=== PATIENT | male | born 1945 | race Caucasian/White ===

== ENCOUNTER → 2021-12-10 12:41 | Outpatient (BNVA) | payer MEDICARE, OTHER, SELFPAY | PROVIDERS: PCP Family Medicine; Visit Provider Nurse Practitioner Family | DX: R31.0 Gross hematuria (principal); R33.9 Retention of urine, unspecified | CPT/HCPCS: 51741; 51798; 81003; 87086; 88112; 99203 ==

== ENCOUNTER 2021-12-26 06:39 | Outpatient (CLI) | payer MEDICARE, OTHER, SELFPAY ==
--- NOTE | 2021-12-26 08:30 | CT_ITS ---
WS: [id number] CT ABDOMEN AND PELVIS WITH AND WITHOUT CONTRAST HISTORY: GROSS HEMATURIA TECHNIQUE: Unenhanced 5 mm axial imaging first performed through the abdomen. Post contrast imaging t hrough the abdomen and pelvis. Oral contrast has not been provided. Sagittal and coronal reformats a re submitted. All CT scans at [facility] use at least one of these dose optimization techniqu es: automated exposure control; mA and/or kV adjustment per patient size (includes targeted exams whe re dose is matched to clinical indication); or iterative reconstruction. CONTRAST: Visipaque 320; 95 mL IV. DLP: 2444.11 mGy.cm COMPARISON: None available. Moderate motion artifact at the lung bases. Chronic emphysema. Heart is normal size. Small hiatal her leticia. Liver is normal. Normal portal vein. Normal size spleen and adrenal glands. Normal gallbladder. Normal pancreas. No pancreatic duct dilatation. Moderate atherosclerotic plaque within the aorta. RIGHT kidney: Normal size kidney. No stones identified. No obstruction. Cortical 8mm hypodensity supe rior pole too small to characterize. No solid mass or obstruction. No uroepithelial lesions. LEFT kidney: Normal size with no calcification or obstruction. There are a few tiny cortical hypodens ities which are too small to characterize. No uroepithelial lesion. Abnormal urinary bladder. Urinary bladder is moderately well distended. There is mild diffuse wall th ickening and mucosal irregularity. Solid mass with punctate calcification and enhancement along the R IGHT lateral urinary bladder measures 2.1 x 1.5 cm. There are additional tiny nodules scattered throu ghout the urinary bladder wall and several small bladder diverticulum on the RIGHT. The largest diver ticulum measures 2.5 x 2.6 cm. Prostate gland is enlarged and very heterogeneous with calcification. Prostate measures 7.8 x 5.3 cm x 6.3 cm. There is increased soft tissue inseparable from the prostate gland extending to the LEFT within the urinary bladder. Due to the extensive nature, this could be a dditional neoplasm involving the bladder wall or extension from the prostate gland. No GI tract obstruction. There is mild mucosal thickening involving the small bowel and the LEFT uppe r abdomen. No obstruction. No colon obstruction. Quality of this examination is compromised by the br eathing motion artifact. No adenopathy. No ascites. There are a few sclerotic foci within the bones which are very indeterminate and may be small bone is lands. CT/CT abdomen pelvis wo/w [id number] IMPRESSION: 1. Abnormal urinary bladder. Mass along the RIGHT lateral urinary bladder wall measures 2.1 x 1.5 cm. There are additional areas of thickening and nodularity around urinary bladder wall. 2. Enlarged prostate. Contiguous from the prostate gland and extending into th e LEFT base of the bladder is additional soft tissue mass which may be bladder neoplasm versus prostate extension. 3. No renal calcification, obstruction or mass. 4. Atherosclerosis aorta. 5. Mild fluid distention and mucosal thickening of the small bowel loops in th e LEFT upper abdomen. Early due to mild gastroenteritis.
[2021-12-26] MEDS: iodixanol 320 mg/mL 100mL Btl IV (08:42)
[2021-12-26 10:23] LABS: Blood Urea Nitrogen 24 mg/dL (8-23)
== END 2021-12-26 06:40 | disposition home or self-care (01) ==
PROVIDERS: PCP Family Medicine; Visit Provider Nurse Practitioner Family
DX: R31.0 Gross hematuria (principal); N32.89 Other specified disorders of bladder; N40.0 Benign prostatic hyperplasia without lower urinary tract symptoms; I70.0 Atherosclerosis of aorta; R33.9 Retention of urine, unspecified; C67.9 Malignant neoplasm of bladder, unspecified; J44.9 Chronic obstructive pulmonary disease, unspecified
CPT/HCPCS: 51741; 51798; 74178; 81003; 82565; 84520; 99215

== ENCOUNTER 2021-12-31 15:17 | Observation (INO) | payer MEDICARE, OTHER, SELFPAY ==
[2021-12-30 16:13] VITALS: BMI 19.8
[2021-12-31] VITALS (20 sets, daily range): BP systolic 103–153; BP diastolic 61–83; PULSE 74–101; RESP 16–20; TEMP 36.8–37; O2SAT 90–98
--- NOTE | 2021-12-31 07:00 | XR_ITS ---
WS: [id number] Chest 2 views, 12/31/2021 Clinical Data: Bladder cancer, COPD Comparison: None. Findings: No nodules, masses or effusions are seen. The heart is normal. The pulmonary vascularity is not increased. No pneumonia or pneumothorax is seen. The aortic arch and descending thoracic aorta s how calcification. The diaphragms are flattened. XR/XR chest 2V* [id number] Impression: Atherosclerosis and hyperinflation.
--- NOTE | 2021-12-31 07:15 | P.HPUD_ITS ---
Surgery/Procedure H&P Update DATE OF PROCEDURE: December 31, 2021 DATE H&P PERFORMED: 12/26/21 H&P UPDATE INFORMATION: I have reviewed H&P completed within last 30 days, I have examined patient prior to procedure, No changes to prior documentation and H&P is in [facility] EMR on date indicated CHANGES TO PREVIOUS DOCUMENTATION: Chest x-ray was normal. EKG showed no acute changes. Lab data looked good. PREOP DIAGNOSIS: bladder cancer PLANNED PROCEDURE: Operation Date: 12/31/21 08:05 Proposed Procedures p CYSTOSCOPY TRANSURETHRAL RESECTION BLADDER TUMOR LARGE 22300,10478,C67.9(Not Applicable) - Cleveland Sanabria MD s Transurethral Resection Bladder Tumor(Not Applicable) - Cleveland Sanabria MD
--- NOTE | 2021-12-31 07:17 | ECG_ITS ---
[facility] Test Date: 2021-12-31 Pat Name: Joe Lawson Department: Room: Gender: Male [employer] Operator: : [id number] Requested By: Cleveland Sanabria Order Number: [id number] Keyana MD: Enoc Peña M.D. Measurements Intervals [place] Rate: 95 P: 85 NJ: 160 QRS: -75 QRSD: 80 T: 78 QT: 344 QTc: 434 Interpretive Statements SINUS RHYTHM POSSIBLE RIGHT ATRIAL ENLARGEMENT [0.25mV P-WAVE] POSSIBLE LEFT ATRIAL ENLARGEMENT [-0.1mV P-WAVE IN V1/V2] LEFT AXIS DEVIATION [QRS AXIS < -30] No previous ECG available for comparison Electronically Signed On 12-31-2021 17:20:31 CDT by Enoc Peña M.D. [email or web address]
[2021-12-31 08:00] LABS: Basophils % 0.2 %; Eosinophils # 0.1 10^3/uL (0.0-0.8); Eosinophils % 0.6 %; Hematocrit 43.2 % (42.0-52.0); Hemoglobin 14.3 g/dL (11.7-16.6); Lymphocytes # 1.4 10^3/uL (0.8-4.8); Lymphocytes % 15.5 %; Mean Corpuscular HGB Conc 33.1 g/dL (30.0-36.0); Mean Corpuscular Hemoglobin 31.6 pg (28.0-34.0); Mean Corpuscular Volume 95.6 fl (80-94); Mean Platelet Volume 10.7 fL (7.4-10.4); Monocytes % 11.8 %; Neutrophils # 6.27 10^3/uL (1.8-7.7); Neutrophils % 71.6 %; Nucleated Red Blood Cells % 0 %; Platelet Count 196 10^3/cmm (130-400); Red Blood Count 4.52 10^6/uL (4.1-5.3); Red Cell Distribution Width 12.5 % (12.1-15.1); White Blood Count 8.8 10^3/uL (4.0-10.0)
[2021-12-31] MEDS: sodium chloride 0.9% 1,000 ML 30 ML IV (08:10)
[2021-12-31] MEDS: ipratropium-albuterol 3 mL Neb INHALATION (08:21)
[2021-12-31] MEDS: meperidine 50 mg/mL INJ 12.5 MG IVP ×2 (08:27→11:55)
[2021-12-31 08:33] LABS: Alanine Aminotransferase 21 U/L (0-41); Albumin Level 3.9 g/dL (3.5-5.2); Alkaline Phosphatase 147 U/L (40-130); Anion Gap 15.3 (5-19); Aspartate Amino Transferase 18 U/L (0-40); Blood Urea Nitrogen 19 mg/dL (8-23); Calcium 9.3 mg/dL (8.5-10.5); Carbon Dioxide 27 mmol/L (22-29); Chloride 100 mmol/L (98-107); Globulin 3.1 g/dL (1.3-4.6); Glucose 117 mg/dL (65-115); Osmolality Calculated 289 mOsm/kg (285-295); Potassium 4.3 mmol/L (3.5-5.1); Sodium 138 mmol/L (136-145); Total Bilirubin 0.4 mg/dL (0.15-1.2)
--- NOTE | 2021-12-31 08:38 | ANES.PREANE2 ---
Pre-Anesthetic Assessment Height/Weight: Height 1.73 m Weight 58.967 kg O2 Del Method 12/31/21 07:40 Preop Diagnosis: bladder cancer Operation Date: 12/31/21 08:05 Proposed Procedures p CYSTOSCOPY TRANSURETHRAL RESECTION BLADDER TUMOR LARGE 97579,34280,C67.9(Not Applicable) - Cleveland Sanabria MD s Transurethral Resection Bladder Tumor(Not Applicable) - Cleveland Sanabria MD Familial anesthetic complications: None Was Beta Douglas taken within 24 hours: N/A Was Clonidine taken within 24 hours: N/A Last intake: Intake Last Liquid Date 12/30/21 Last Liquid Time 17:00 Last Solid Date 12/30/21 Last Solid Time 17:00 Social Tobacco and No alcohol Exam alert, oriented x 3 and regular rate & rhythm Elevated heart rate (95), rhonchi/wheezing Airway Submandibular: within normal limits Cervical ROM: within normal limits Mallampati: Class II Dentition: false Pulmonary Chronic Obstructive Pulmonary Disease CV/HEM Hypertension blood in urine Metabolic Thyroid Disease Anesthetic Plan ASA status: 3 Anesthesia: General Medications/Allergies Home Medications Medication Instructions Recorded Confirmed Last Taken Type albuterol sulfate 0.63 mg/3 mL 0.63 mg inhalation QID PRN 12/10/21 12/30/21 Unknown History solution for nebulization Shortness Of Breath budesonide 0.5 mg/2 mL suspension 0.25 mg inhalation BID 12/10/21 12/30/21 12/30/21 History for nebulization formoterol fumarate 20 mcg/2 mL 2 ml inhalation BID PRN Shortness 12/10/21 12/30/21 Unknown History solution for nebulization Of Breath (Perforomist) levothyroxine 75 mcg capsule 75 mcg PO DAILY 12/10/21 12/31/21 12/31/21 History lisinopril 20 mg tablet 20 mg PO DAILY 12/10/21 12/30/21 12/30/21 History oxygen continuous inhalation 12/10/21 12/26/21 12/31/21 History Allergies Allergy/AdvReac Type Severity Reaction Status Date / Time No Known Allergies Allergy Unverified 12/26/21 10:20 Current Medications Generic Name Dose Route Start Last Admin Trade Name Freq PRN Reason Stop Dose Admin Sodium Chloride 1,000 mls @ 30 mls/hr 12/31/21 07:15 12/31/21 08:10 Sodium Chloride 0.9% IV 01/01/22 07:14 30 mls/hr .Q24H KIMBERLY Administration Meperidine HCl 12.5 mg 12/31/21 08:15 12/31/21 08:27 Meperidine 50 Mg/Ml Inj IVP 12.5 mg ONCE PRN Administration SEVERE PAIN PFSH Anesthesia Medical History (Updated 12/26/21 @ 16:28 by Cleveland Sanabria MD) Bladder cancer COPD (chronic obstructive pulmonary disease) Family History Mother , age 93 CAD (coronary artery disease) Father , at age 78 Cancer lung Brother , at 83 Cancer colon Sister , Age 79 No problems noted. Social History Smoking and tobacco status: current every day smoker Alcohol intake: never Lives independently: Yes Household members: spouse Marital status: Current occupational status: retired History of recent travel: No Data Anesthesia : 12/31/21 07:25 12/31/21 07:25 Short CBC 12/31/21 Range/Units 07:25 WBC 8.8 (4.0-10.0) 10^3/uL Hgb 14.3 (11.7-16.6) g/dL Hct 43.2 (42.0-52.0) % MCV 95.6 H (80-94) fl Plt Count 196 (130-400) 10^3/cmm Neut % (Auto) 71.6 % Neut # (Auto) 6.27 (1.8-7.7) 10^3/uL BMP 12/31/21 07:25 Sodium 138 Potassium 4.3 Chloride 100 Carbon Dioxide 27 BUN 19 Calcium 9.3 Liver Function 12/31/21 Range/Units 07:25 Total Bilirubin 0.4 (0.15-1.2) mg/dL AST 18 (0-40) U/L ALT 21 (0-41) U/L Albumin 3.9 (3.5-5.2) g/dL Cardiac Studies: No Data to Display
--- NOTE | 2021-12-31 09:10 | PM.OP ---
Operative Report Date of procedure: December 31, 2021 Pre-op diagnosis: Newly diagnosed TCCA of the bladder, large Post-op diagnosis: Newly diagnosed TCCA of the bladder, large Procedure done: 1. Cystoscopy, transurethral section of bladder tumor large Specimens removed/disposition: Bladder tumor specimens Pathology: Bladder tumor Surgeon: Elly Anesthesia: General Estimated blood loss: Less than 50 cc Urine output: Not measured Complications: None Findings: Multifocal invasive appearing bladder cancer involving right lateral wall near the dome, posterior bladder wall cephalad to the trigone and distal to the trigone, left posterolateral bladder wall. Brief History: Mr. Lawson is a very pleasant 76-year-old white male recently evaluated for gross hematuria times several months. Noticed clots at times. Longstanding history of tobacco abuse. Work-up included a cytology showing atypical cells, CT scan demonstrating large soft tissue density consistent with TCCA of the bladder but no evidence of metastatic disease. Cystoscopy confirmed that finding to be TCCA. He is admitted now for TURBT. Procedure: After routine preoperative evaluation examination and obtaining of informed consent he was taken to the operating suite on 12/31/2021 where general anesthesia was administered without difficulty after appropriate timeout was performed, SCDs confirmed to be functioning, preoperative antibiotics administered, beta-constance protocol confirmed. Prepped and draped in usual sterile fashion in dorsolithotomy position paying careful attention to avoiding pressure points. 21 [place] cystoscope with 30 degree lens was introduced into the urethra meatus and advanced into the bladder without difficulty. The bladder was distended with a lot of stagnant appearing urine. Bladder was rinsed multiple times to clear the debris. The bladder was systematically examined with 30 and 70 degree lenses. Findings as described above. The urethra was then calibrated with [place] sounds and easily accommodated 30 [place]. 2% lidocaine jelly was instilled into the urethra and then a 25 [place] continuous-flow resectoscope sheath with visual obturator in place was advanced into the bladder without difficulty. The gyrus bipolar system was utilized for resection with the super loop and fulguration with the button probe. Initial resection was performed on the right lateral wall or toward the dome papillary tumor with dystrophic calcification. It was completely resected down into the bladder wall. Muscle was visualized at the base. Attention was then directed to the left posterolateral wall where the bulk of the tumor was located extending onto the prostate itself. The left ureteral orifice was not easily identified but the right ureteral orifice was. Resection was begun more laterally taking the tumor down to the bladder wall base. Resection was then directed in the medial direction from previous resection. The left ureteral orifice was never completely identified but there was an area of most suspicion that was involved in resection to remove the tumor and appeared to the after resection consistent with a superficially resected ureteral orifice. Methylene blue was administered IV but could not see any E flux from either orifice. It appeared to me that the left posterior bladder wall tumor was involved in the muscle. There was a lot of superficial tumor as well well away from the orifice area that was just fulgurated with a button probe if there is no muscle involvement he will need a repeat staging resection. Resection did extend onto the bladder neck on the left side posteriorly. All resected sites were carefully inspected and hemostasis was confirmed. The button probe was used to fulgurate the base of both resection sites and care was made to avoid anything close to the area of the presumed left ureteral orifice. The 2 areas of resection were sent separately for pathologic evaluation. On final inspection hemostasis was meticulous. No residual specimens were in the bladder. Still cannot see any obvious blue efflux from either area of the orifices The bladder was then drained with a 22 [place] three-way Guy catheter with 30 cc placed in the balloon. Efflux was clear. Light CBI was initiated. Catheter was confirmed to be functioning well with irrigation. Tolerated the procedure well without complications and was awakened in the operating room and returned to the recovery room in stable condition. PLANS: 1. Admit to observation status. Anticipate discharging with Guy catheter 2. If muscle involvement will send for evaluation of either extirpative or potentially bladder sparing treatment. 3. If no muscle involvement will require restaging resection. May require reimaging of the upper tracts to assess for adequate ureteral drainage particularly on the left.
[2021-12-31] MEDS: levofloxacin-dextrose 5 % 500 MG/100 ML PREMIX 100 MG IV (09:13)
[2021-12-31] MEDS: lidocaine 2% Urojet 20 mL TOPICAL (11:06)
--- NOTE | 2021-12-31 12:00 | ANE.PACU2 ---
Inpatient post-anesthesia follow up: Airway intact: Yes Vital signs: Temperature 98.4 F Pulse Rate 100 Respiratory Rate 18 Blood Pressure 115/66 Pulse Oximetry 97 Oxygen Delivery Me thod Room Air Oxygen Flow Rate 6 Fraction of Inspir ed Oxygen Hydration adequate: Yes Nausea and vomiting: No Pain level: 2 Mental status: Baseline
[2021-12-31] MEDS: fentaNYL 50 mcg/mL INJ 2mL IVP (14:41)
--- NOTE | 2021-12-31 15:36 | SUR.EXTENDED ---
1520 report called to Philomena for transport to room 253
[2021-12-31] MEDS: lisinopril 20 mg Tablet PO (17:07)
[2021-12-31] MEDS: HYDROcodone-acetaminophen 5-325 mg Tablet 1 TAB PO (17:34)
--- NOTE | 2021-12-31 18:21 | PC.NURSE ---
Patient had 1550mL of urine output on my shift, clear in color, no clots noted, no manual irrigation needed, pain controlled with oral pain meds, CBI running at a slow drip
[2021-12-31] MEDS: morphine 4 mg/mL SDV 1 mL IVP (19:14)
[2021-12-31] MEDS: budesonide 0.5 mg/2 mL Neb 0.25 MG INHALATION (20:10)
[2022-01-01] VITALS: BP 118/64; PULSE 74; RESP 16; TEMP 36.7; O2SAT 97
[2022-01-01] MEDS: HYDROcodone-acetaminophen 5-325 mg Tablet 1 TAB PO (03:13)
[2022-01-01 04:00] VITALS: BP 105/56; PULSE 79; RESP 16; TEMP 37; O2SAT 94
[2022-01-01 08:00] VITALS: BP 110/60; PULSE 73; PULSE 82; RESP 15; RESP 18; TEMP 37.1; O2SAT 88; O2SAT 93
[2022-01-01] MEDS: budesonide 0.5 mg/2 mL Neb 0.25 MG INHALATION (09:15)
--- NOTE | 2022-01-01 10:21 | PC.CHAP ---
Pastoral Care Encounter/Spiritual Assessment Type of Contact [x] Declined molding utility worker visit [] Patient/Family/Request visit [] Outpatient visit [] Follow-up visit [] Physician referral [] Code/Alert [] Routine visit [] Staff referral [] Actively dying [] Patient sleeping [] Family support [] [] Out of room [] Palliative care [] [] Receiving care in room [] Pre-surgical visit [] Trauma [] Long length of stay [] ICU visit [] Other: Relational/Emotional Strength [] Patient feels connected with others/family/visitors/staff [] Distress [] Loneliness/isolation [] Abandonment Spirituality of Patient [] Person of Diann [] Attends Nondenominational of their Diann [] Believes in Prayer [] Reads Bible or Methodist materials [] There are Spiritual issues to be addressed Draw Furnace Tender Interventions [] Prayer [] Active listening [] Non-anxious presence [] Spiritual/emotional support [] Crisis/trauma care [] Spiritual counseling [] Bereavement support [] Provided bereavement packet [] Provided Bible/devotional materials [] Provided toy/stuffed animal, coloring book to patient or family member [] Provided Communion [] Anointing/[place] [] Salvation [] Completed spiritual assessment [] Other: Impact on Illness or Injury [] Angry [] Fearful [] Anxious [] Often cries [] Exhaustion [] Unable to work [] Unable to attend rastafari [] Unable to walk/stand [] Unable to read [] Unable to drive [] Unable to eat/drink [] Unable to sleep [] Unable to be with family [] Patient intubated [] Other: Summary Declined molding utility worker visit Time spent with patient 5 mins
[2022-01-01] MEDS: levothyroxine 75 mcg Tablet PO (10:33)
[2022-01-01] MEDS: lisinopril 20 mg Tablet PO (10:33)
[2022-01-01 12:00] VITALS: BP 118/69; PULSE 77; RESP 14; TEMP 36.7; O2SAT 96
--- NOTE | 2022-01-01 12:42 | P.DS_ITS ---
Discharge Providers Date of Admission: 12/31/21 15:17 Date of Discharge: January 01, 2022 Attending Provider at Admission: Cleveland Sanabria MD Attending Provider at Discharge: Cleveland Sanabria MD Primary Care Provider: Negar Sylvester DO Reason for Visit Reason for Visit: Newly diagnosed bladder cancer Brief History: Recently diagnosed with large volume bladder cancer during work-up for gross hematuria. Admitted for TURBT. Preoperative CT scan showed no clear evidence of metastatic disease. Preoperative chest x-ray as well was negative. Hospital Course Hospital Course He was admitted on the day of the procedure which went well. Clinically it appeared that the tumor involve the muscle. Guy catheter was left in and CBI was tapered off over the following day. He was discharged on postop day #1 in stable condition with catheter in place with plans for voiding trial 1 week postop. We will review pathology report at the same time. In addition he was found to have a very large postvoid residual at time of surgery. 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 Physical Exam Narrative: Alert oriented no acute distress No labored respiration Abdomen is soft without tenderness. Catheter draining clear urine. No hematuria No change genitourinary exam. Chronic tremor as previously noted Urinary Catheter Management: 3-way Urethral CBI: Cath Placed During This Visit: yes Reason for Continuing Indwelling Catheter: Perioperative Use in Selected Surgeries Urinary Catheter Date of Insertion: 12/31/21 Urinary Catheter Time of Insertion: 11:12 Discharge Data Studies Completed and Pending Completed Studies During Hospitalization Category Date Time Status XR chest 2V* [id number] Routine Exams 12/31/21 07:00 Completed Pending at discharge Category Date Time Status Pathology: Surgical [PTH] Routine Pth 12/31/21 11:20 Received Radiology Impressions Chest X-Ray 12/31/21 07:00 Impression: Atherosclerosis and hyperinflation. Laboratory Results WBC 8.8 10^3/uL (4.0-10.0) 12/31/21 07:25 RBC 4.52 10^6/uL (4.1-5.3) 12/31/21 07:25 Hgb 14.3 g/dL (11.7-16.6) 12/31/21 07:25 Hct 43.2 % (42.0-52.0) 12/31/21 07:25 MCV 95.6 fl (80-94) H 12/31/21 07:25 MCH 31.6 pg (28.0-34.0) 12/31/21 07:25 MCHC 33.1 g/dL (30.0-36.0) 12/31/21 07:25 RDW 12.5 % (12.1-15.1) 12/31/21 07:25 Plt Count 196 10^3/cmm (130-400) 12/31/21 07:25 MPV 10.7 fL (7.4-10.4) H 12/31/21 07:25 Neut % (Auto) 71.6 % 12/31/21 07:25 Lymph % (Auto) 15.5 % 12/31/21 07:25 Lar[place] % (Auto) 11.8 % 12/31/21 07:25 Eos % (Auto) 0.6 % 12/31/21 07:25 Baso % (Auto) 0.2 % 12/31/21 07:25 Neut # (Auto) 6.27 10^3/uL (1.8-7.7) 12/31/21 07:25 Lymph # (Auto) 1.4 10^3/uL (0.8-4.8) 12/31/21 07:25 Larue # (Auto) 1.0 10^3/uL (0.2-0.9) H 12/31/21 07:25 Eos # (Auto) 0.1 10^3/uL (0.0-0.8) 12/31/21 07:25 Baso # (Auto) 0.0 10^3/uL (0.0-0.1) 12/31/21 07:25 Nucleated RBC % (auto) 0 % 12/31/21 07:25 Nucleated RBCs # 0.0 /100WBC 12/31/21 07:25 Sodium 138 mmol/L (136-145) 12/31/21 07:25 Potassium 4.3 mmol/L (3.5-5.1) 12/31/21 07:25 Chloride 100 mmol/L (98-107) 12/31/21 07:25 Carbon Dioxide 27 mmol/L (22-29) 12/31/21 07:25 Anion Gap 15.3 (5-19) 12/31/21 07:25 BUN 19 mg/dL (8-23) 12/31/21 07:25 Creatinine 1.3 mg/dL (0.7-1.2) H 12/31/21 07:25 GFR Calculation Not Reportable 12/31/21 07:25 Glucose 117 mg/dL (65-115) H 12/31/21 07:25 Calculated Osmolality 289 mOsm/kg (285-295) 12/31/21 07:25 Calcium 9.3 mg/dL (8.5-10.5) 12/31/21 07:25 Total Bilirubin 0.4 mg/dL (0.15-1.2) 12/31/21 07:25 AST 18 U/L (0-40) 12/31/21 07:25 ALT 21 U/L (0-41) 12/31/21 07:25 Alkaline Phosphatase 147 U/L (40-130) H 12/31/21 07:25 Total Protein 7.0 g/dL (6.6-8.7) 12/31/21 07:25 Albumin 3.9 g/dL (3.5-5.2) 12/31/21 07:25 Globulin 3.1 g/dL (1.3-4.6) 12/31/21 07:25 Procedures Performed Cystoscopy, transurethral section of bladder tumor large Vitals Last Vital Signs Temp 98.0 F 01/01/22 12:00 Pulse 77 01/01/22 12:00 Resp 14 01/01/22 12:00 BP 118/69 01/01/22 12:00 Pulse Ox 96 01/01/22 12:00 O2 Del Method 01/01/22 12:00 O2 Flow Rate 2 01/01/22 08:00 Discharge Plan Discharge Patient Disposition: Home Condition: Stable Prescriptions: New hydrocodone-acetaminophen 5-325 mg tablet 1 tab PO Q8H PRN (Reason: pain) Qty: 12 0RF Continued lisinopril 20 mg tablet 20 mg PO QAM budesonide 0.5 mg/2 mL suspension for nebulization 0.5 mg inhalation QAM Euthyrox 75 mcg tablet 75 mcg PO QAM tamsulosin 0.4 mg capsule 0.4 mg PO BEDTIME albuterol sulfate 90 mcg/actuation HFA aerosol inhaler 2 puff INHALATION Q6H PRN (Reason: Shortness Of Breath) PreserVision AREDS-2 250-90-40-1 mg Tablet,Chewable 1 tab PO BEDTIME Held aspirin 81 mg Tablet,Delayed Release (Dr/Ec) 162 mg PO BEDTIME Hold Instructions: Resume on 01/12/22. Discharge Orders: Discharge Order (Routine); Ordered 01/01/22 Ordered By: Cleveland Sanabria Referrals: Cleveland Sanabria MD [Physician] - 01/07/22 1:00 pm Discharge Diet: Usual diet Discharge Activity: Limit activity as instructed Patient Instructions: Opioid Safety Activity Restrictions/Additional Instructions: 1. It is important to leave the catheter in at discharge. We will we will consider Guy catheter removal on follow-up. This will require learning self- catheterization due to persistently elevated volumes of urine after inadequate voiding. 2. We will review the pathology report on return to clinic. If it shows cancer in the muscle we will talk about different options for treatment. If it shows no evidence of cancer in the muscle then we will reschedule another biopsy to confirm that finding. 3. Pain medication has been sent to your pharmacy to use as needed Discharge Attestations Time Spent in Discharge Care*: greater than 30 min Quality Metrics Clinical Quality Measures [ No reported AMI, CVA or VTE this stay] Coding Level of Care Code Acute Chg DC note
[2022-01-01 15:31] VITALS: BP 137/67; PULSE 84; RESP 16; TEMP 36.7; O2SAT 92
[2022-01-01 15:59] VITALS: BP 137/67; PULSE 84; RESP 16; TEMP 36.7; O2SAT 92
== END 2022-01-01 15:50 | disposition home or self-care (01) ==
LOC: MEDSURG 15:18
PROVIDERS: Admitting Provider Urology; PCP Family Medicine; Visit Provider Urology
PROC: 0TJB8ZZ Inspection of Bladder, Via Natural or Artificial Opening Endoscopic (ICD-10-PCS; CPT 52000; principal; 2021-12-31 07:55)
PROC: 0TBB8ZZ Excision of Bladder, Via Natural or Artificial Opening Endoscopic (ICD-10-PCS; CPT 52240; 2021-12-31 07:55)
DX: C67.9 Malignant neoplasm of bladder, unspecified (principal); J44.9 Chronic obstructive pulmonary disease, unspecified; I10 Essential (primary) hypertension; F17.210 Nicotine dependence, cigarettes, uncomplicated
CPT/HCPCS: 52240; 36415; 71046; 80053; 85025; 88307; 93005; 94640; G0378; J1100; J1940; J1956; J2175; J2270; J2370; J2405; J2704; J3010; J3490; J7030; J7626; Q9968

== ENCOUNTER → 2022-01-07 12:40 | Outpatient (BNVA) | payer MEDICARE, OTHER, SELFPAY | PROVIDERS: PCP Family Medicine; Visit Provider Urology | DX: C67.9 Malignant neoplasm of bladder, unspecified (principal); Z98.890 Other specified postprocedural states; R33.9 Retention of urine, unspecified | CPT/HCPCS: 52000; 99214 ==

== ENCOUNTER 2022-01-13 07:49 | Oncology outpatient (recurring) (ONCR) | payer MEDICARE, OTHER, SELFPAY | END 2022-01-14 23:59 | disposition home or self-care (01) | PROVIDERS: PCP Family Medicine; Visit Provider Internal Medicine Medical Oncology | DX: C67.8 Malignant neoplasm of overlapping sites of bladder (principal); F17.210 Nicotine dependence, cigarettes, uncomplicated; R63.4 Abnormal weight loss; Z68.1 Body mass index [BMI] 19.9 or less, adult | CPT/HCPCS: 99205 ==

== ENCOUNTER → 2022-01-21 13:10 | Outpatient (BNVA) | payer MEDICARE, OTHER, SELFPAY | PROVIDERS: PCP Family Medicine; Referring Provider Urology; Visit Provider Internal Medicine Cardiovascular Disease | DX: Z01.810 Encounter for preprocedural cardiovascular examination (principal); C67.8 Malignant neoplasm of overlapping sites of bladder; I10 Essential (primary) hypertension; G25.0 Essential tremor; E03.9 Hypothyroidism, unspecified; J44.9 Chronic obstructive pulmonary disease, unspecified; F17.210 Nicotine dependence, cigarettes, uncomplicated | CPT/HCPCS: 99204 ==

== ENCOUNTER 2022-02-20 12:20 | Inpatient (IN) | payer MEDICARE, OTHER, SELFPAY ==
[2022-02-20] VITALS (10 sets, daily range): BP systolic 106–170; BP diastolic 63–96; PULSE 63–110; RESP 16–30; TEMP 36.9–37.3; O2SAT 91–96; BMI 18.2
--- NOTE | 2022-02-20 12:22 | W.ED.GENADLT ---
HPI - General Adult General: Chief complaint: Weakness Stated complaint: WEAKNESS/ FALL/ BLOOD IN URINE Time Seen by Provider: 02/20/22 12:22 History of Present Illness: Patient is a 76-year-old male with a history of bladder cancer followed by Dr. Sanabria presents emergency room with concerns of a fall, generalized weakness and decreased appetite/po intake. Patient tells me that he was trying to get to his chair around 10:00 this morning when she he excellently fell. Patient landed on his right side. Patient witnessed the whole episode. Patient and deny patient injuring his head. Patient was unable to get up from the ground and EMS was called. Patient was brought to the emergency room. On arrival, patient denies having pain anywhere. Patient tells me that he is due to establish care with Dr. Tyson she is to start chemotherapy on Wednesday. Patient has had ongoing hematuria. Patient denies any abdominal pain, chest pain, shortness of palpitation or lightheadedness prior to the episode of fall. Patient denies any anticoagulation. No, patient has had decreased p.o. intake in the last 3 weeks and has had significant weight loss. He also reports generalized weakness. Onset:10am Duration:once Location:home Severity:moderate Associated symptoms: Deny chest pain, dyspnea, nausea, rash, palpitations or vomiting Review of Systems Const: Reports: fatigue and other (+generalized weakness); Denies: fever(s) or chills Eyes: Denies: change in vision ENMT: Denies: mouth pain Card: Denies: chest pain or palpitations Resp: Denies: dyspnea or non-productive cough GI: Reports: other (+decreased appetite); Denies: abdominal pain, nausea, vomiting or diarrhea : Denies: dysuria Musc: Denies: extremity pain Skin/Breast: Denies: rash or new lesions Neuro: Denies: weakness in extremities Psych: Reports: other (Normal mood) Diallo/Lymph: Denies: easy bruising PFSH ED PFSH: Medical History COPD (chronic obstructive pulmonary disease) Essential tremor Hypertension Hypothyroidism Surgical History H/O transurethral destruction of bladder lesion (12/31/21) Family History Mother , age 93 CAD (coronary artery disease) Father , at age 78 Cancer lung Brother , at 83 Cancer colon Sister , Age 79 No problems noted. Other Diabetes Hypertension Lung disease Social History Smoking and tobacco status: current every day smoker cigarettes Packs smoked per day: 0.5 Years cigarettes smoked: 70 Alcohol intake: never Lives independently: Yes Household members: spouse Marital status: Current occupational status: retired History of recent travel: No Physical Exam Const: COMMON NORMALS: alert GENERAL APPEARANCE: frail appearing HENMT: COMMON NORMALS: atraumatic HEAD & SCALP: atraumatic MOUTH: moist mucous membranes abnormal Eye: COMMON NORMALS: EOMs intact bilaterally and conjunctivae normal CONJUNCTIVA: Yes conjunctivae normal Neck/C-Spine: COMMON NORMALS: full ROM and supple Resp: COMMON NORMALS: normal respiratory effort and clear to auscultation bilaterally AUSCULTATION: clear to auscultation bilaterally Cardio: COMMON NORMALS: regular rate RATE: regular rate GI: COMMON NORMALS: Soft to palpation and non-tender PALPATION: Yes Soft to palpation OTHER: No focal TTP. NO guarding rebound, guarding, rigidity. No CVA tenderness to percussion. Neg Martinez/Neg McBurney's point tenderness, no suprabupic tenderness to palpation. Extremity: COMMON NORMALS: full ROM Neuro: SENSORIUM/ORIENTATION: Yes alert MOTOR EXAM: No Abnormal motor strength present and Other motor observations present (no focal motor deficits) Psych: COMMON NORMALS: speech normal SPEECH: Yes normal speech MOOD & AFFECT: Yes euthymic mood Course Vital Signs: Vital signs: Vital Signs Temperature 98.7 F 02/20/22 12:21 Pulse Rate 101 H 02/20/22 15:21 Respiratory Rate 18 02/20/22 15:21 Blood Pressure 135/68 02/20/22 15:21 Pulse Oximetry 95 02/20/22 15:21 Oxygen Delivery Me thod 02/20/22 15:21 MDM - General Adult Medical Decision Making Patient is a 76-year-old male with a history of bladder cancer followed by Dr. Sanabria presents emergency room with concerns of a fall, generalized weakness and decreased appetite/po intake. On exam, patient is thin male. Patient has dry mucous membrane. Exam is unremarkable. Patient is chronically Guy dependent. Patient's white count 25.0. Creatinine 1.5 up from baseline 1.3 from 12/2021. Patient also has a sodium 129. UA is consistent with UTI. Patient received ceftriaxone. CT of the pelvis showed pyelonephritis with possible prostate abscess around the Guy site. Case was discussed with Dr. Sanabria who recommend IV antibiotics at this time and he will follow patient. Patient received vancomycin and ceftriaxone. Patient also received 1 L of fluid. Disposition: admission Lab Data : 02/20/22 12:40 02/20/22 12:40 Radiology Impressions Chest X-Ray 02/20/22 12:46 IMPRESSION: Imaging findings of mild pulmonary congestion. COPD changes. Head CT 02/20/22 12:46 IMPRESSION: 1. No evidence of intracranial hemorrhage or mass effect. 2. No acute intracranial findings. Abdomen/Pelvis CT 02/20/22 14:43 IMPRESSION: 1. Enlarged heterogeneous prostate with irregular rim enhancing fluid collection surrounding the Guy catheter, concerning for abscess/infectious process superimposed in prostatomegaly. 2. Imaging findings of left pyelonephritis and cystitis. Previously seen urinary bladder mass is not clearly identified. 3. Short segment of small bowel inflammation adjacent to the left kidney, which may be secondary to inflammatory process in the kidney or represent enteritis. Laboratory Results WBC 25.0 10^3/uL (4.0-10.0) H 02/20/22 12:40 RBC 4.15 10^6/uL (4.1-5.3) 02/20/22 12:40 Hgb 13.0 g/dL (11.7-16.6) 02/20/22 12:40 Hct 40.3 % (42.0-52.0) L 02/20/22 12:40 MCV 97.1 fl (80-94) H 02/20/22 12:40 MCH 31.3 pg (28.0-34.0) 02/20/22 12:40 MCHC 32.3 g/dL (30.0-36.0) 02/20/22 12:40 RDW 12.6 % (12.1-15.1) 02/20/22 12:40 Plt Count 193 10^3/cmm (130-400) 02/20/22 12:40 MPV 10.9 fL (7.4-10.4) H 02/20/22 12:40 Neut % (Auto) 85.5 % 02/20/22 12:40 Lymph % (Auto) 2.2 % 02/20/22 12:40 [place] % (Auto) 10.2 % 02/20/22 12:40 Eos % (Auto) 0.0 % 02/20/22 12:40 Baso % (Auto) 0.2 % 02/20/22 12:40 Neut # (Auto) 21.33 10^3/uL (1.8-7.7) H 02/20/22 12:40 Lymph # (Auto) 0.6 10^3/uL (0.8-4.8) L 02/20/22 12:40 [place] # (Auto) 2.6 10^3/uL (0.2-0.9) H 02/20/22 12:40 Eos # (Auto) 0.0 10^3/uL (0.0-0.8) 02/20/22 12:40 Baso # (Auto) 0.1 10^3/uL (0.0-0.1) 02/20/22 12:40 Nucleated RBC % (auto) 0 % 02/20/22 12:40 Nucleated RBCs # 0.0 /100WBC 02/20/22 12:40 Sodium 129 mmol/L (136-145) L 02/20/22 12:40 Potassium 4.7 mmol/L (3.5-5.1) 02/20/22 12:40 Chloride 91 mmol/L (98-107) L 02/20/22 12:40 Carbon Dioxide 24 mmol/L (22-29) 02/20/22 12:40 Anion Gap 18.7 (5-19) 02/20/22 12:40 BUN 43 mg/dL (8-23) H 02/20/22 12:40 Creatinine 1.5 mg/dL (0.7-1.2) H 02/20/22 12:40 GFR Calculation Not Reportable 02/20/22 12:40 Glucose 219 mg/dL (65-115) H 02/20/22 12:40 Calculated Osmolality 286 mOsm/kg (285-295) 02/20/22 12:40 Calcium 8.9 mg/dL (8.5-10.5) 02/20/22 12:40 Urine Color Lachelle (Yellow) 02/20/22 14:15 Urine Appearance Cloudy (CLEAR) A 02/20/22 14:15 Urine pH 6 (5-7) 02/20/22 14:15 Ur Specific [place] 1.015 (1.005-1.030) 02/20/22 14:15 Urine Protein 3+ (Negative) H 02/20/22 14:15 Urine Glucose (UA) Norm (Normal) 02/20/22 14:15 Urine Ketones Negative (Negative) 02/20/22 14:15 Urine Blood 3+ (Negative) H 02/20/22 14:15 Urine Nitrate Positive (Negative) H 02/20/22 14:15 Urine Bilirubin Neg (Negative) 02/20/22 14:15 Urine Urobilinogen Norm mg/dL (Negative) 02/20/22 14:15 Ur Leukocyte Esterase 2+ (Negative) H 02/20/22 14:15 Urine RBC 15-25 /hpf (0-2) H 02/20/22 14:15 Urine WBC 15-25 /hpf (0-5) H 02/20/22 14:15 Ur Squamous Epith Cells None /hpf (0-5) 02/20/22 14:15 Amorphous Sediment Not Reportable 02/20/22 14:15 Urine Bacteria 2+ /hpf (NONE) H 02/20/22 14:15 Imaging Data Other Imaging: Radiologist's impression: [place] [address] CT Scan Report Signed Patient: Joe Lawson Unit #: [id number] : 1945 Age/Sex: 76 / M ADM Date: 02/20/22 Loc: ER Room/Bed: Attending Dr: Ordering Provider/Ordering MD: Grace Cordero MD Date of Service: 02/20/22 Procedure(s): CT abdomen pelvis w con* [id number] Accession Number(s): [id number] Report Number: [id number] PROCEDURE INFORMATION: Exam: CT Abdomen And Pelvis With Contrast Exam date and time: 02/20/2022 2:54 PM Age: 76 years old Clinical indication: Other: Weakness; Additional info: Bladder cancer, UTI, significant leukocytosis TECHNIQUE: Imaging protocol: Computed tomography of the abdomen and pelvis with contrast. Radiation optimization: All CT scans at this facility use at least one of these dose optimization techniques: automated exposure control; mA and/or kV adjustment per patient size (includes targeted exams where dose is matched to clinical indication); or iterative reconstruction. Contrast material: OMNIPAQUE 350; Contrast volume: 80 ml; Contrast route: INTRAVENOUS (IV);? COMPARISON: CT abdomen pelvis wo/w [id number] 12/26/2021 8:36 AM RADIATION DOSE METRICS: Total DLP (mGy-cm): 334.99 FINDINGS: Lungs: Centrilobular emphysema is present. Unchanged 0.7 cm elongated subpleural nodule in lateral the right lower lobe. No new nodule seen. No consolidation. Streaky bibasilar atelectasis seen. Liver: Normal. No mass. Gallbladder and bile ducts: Normal. No calcified stones. No ductal dilation. Pancreas: Normal. No ductal dilation. Spleen: Normal. No splenomegaly. Adrenal glands: Normal. No mass. Kidneys and ureters: See Urinary bladder finding. Adjacent to the left kidney, there is a short segment of small bowel demonstrating wall thickening and stranding of the adjacent fat, which may be secondary to inflammatory process in the kidney or enteritis. Stomach and bowel: See Kidneys and ureters finding. Appendix: No evidence of appendicitis. Intraperitoneal space: No free fluid or free air. Vasculature: Moderate diffuse atherosclerotic disease is present. Lymph nodes: Unremarkable. No enlarged lymph nodes. Urinary bladder: The urinary bladder is decompressed with a Guy catheter in place. Within the enlarged heterogeneous prostate and surrounding the Guy catheter, there is an irregular rim enhancing fluid collection measuring approximately 2.7 x 2.1 x 3.0 cm. There is marked diffuse thickening of the urinary bladder wall, highly concerning for cystitis. The previously seen urinary bladder wall mass is not clearly identified in the current examination. There is heterogeneous enhancement and decreased attenuation of the left kidney in association with stranding of the surrounding fat and thickening of the collecting system wall, consistent with pyelonephritis. There is a subcentimeter cyst in the right upper kidney, which is otherwise unremarkable. Reproductive: See Urinary bladder finding. Bones/joints: Degenerative changes of the spine seen. Soft tissues: Unremarkable. CT/CT abdomen pelvis w con* [id number] IMPRESSION: 1. Enlarged heterogeneous prostate with irregular rim enhancing fluid collection surrounding the Guy catheter, concerning for abscess/infectious process superimposed in prostatomegaly. 2. Imaging findings of left pyelonephritis and cystitis. Previously seen urinary bladder mass is not clearly identified. 3. Short segment of small bowel inflammation adjacent to the left kidney, which may be secondary to inflammatory process in the kidney or represent enteritis. ? Dictated By: Jamey Mccollum Signed By: Jamey Mccollum Signed Date/Time: 02/20/22 153 DD/ 1454 [facility] [address] [place] [address] CT Scan Report Signed Patient: Joe Lawson Unit #: [id number] : 1945 Age/Sex: 76 / M ADM Date: 02/20/22 Loc: ER Room/Bed: Attending Dr: Ordering Provider/Ordering MD: Grace Cordero MD Date of Service: 02/20/22 Procedure(s): CT head wo con* [id number] Accession Number(s): [id number] Report Number: [id number] WS: [id number] CT HEAD TECHNIQUE: Noncontrast CT of the head obtained from the skullbase to the vertex. CLINICAL INFORMATION: fall COMPARISON: None. DLP: 1038.[address] scans at [facility] use at least one of these dose optimization techniques: automated exposure control; mA and/or kV adjustment per patient size (includes targeted exams where dose is matched to clinical indication); or iterative reconstruction. FINDINGS: No evidence of intracranial hemorrhage or mass effect. Ventricular system and basal cisterns are patent. Mild small vessel changes with moderate parenchymal volume loss. Vascular calcification. No extra-axial fluid collections. No evidence of mass or mass effect. Paranasal sinuses and mastoid air cells are well aerated. .Normal visualized soft tissues. Incidental venous lakes or arachnoid granulations in the occipital calvarium. CT/CT head wo con* [id number] IMPRESSION: ? 1.? No evidence of intracranial hemorrhage or mass effect. 2.? No acute intracranial findings. ? Dictated By: Jerman Rutherford MD Signed By: Jerman Rutherford MD Signed Date/Time: 02/20/22 1314 DD/ 1308 wn Allergies Close Abdomen/Pelvis CT (Signed) Jamey Mccollum - 02/20/[address] (Signed) Jerman Rutherford - 02/20/22 Chest X-Ray (Signed) Jamey Mccollum - 02/20/22 PET Report 01/28/22 Chest X-Ray (Signed) Charisma Evans - 12/31/21 Abdomen/Pelvis CT (Signed) Diane Zarco - 12/26/21 [employer] [address] [place] [address] XRay Report Signed Patient: Joe Lawson Unit #: [id number] : 1945 Age/Sex: 76 / M ADM Date: 02/20/22 Loc: ER Room/Bed: Attending Dr: Ordering Provider/Ordering MD: Grace Cordero MD Date of Service: 02/20/22 Procedure(s): XR chest 1V portable [id number] Accession Number(s): [id number] Report Number: [id number] PROCEDURE INFORMATION: Exam: XR Chest Exam date and time: 02/20/2022 1:38 PM Age: 76 years old Clinical indication: Pain; Right-sided; Additional info: R sided chest pain TECHNIQUE: Imaging protocol: Radiologic exam of the chest. Views: 1 view. COMPARISON: CR XR chest 2V* [id number] 12/31/2021 7:27 AM FINDINGS: Lungs: The lungs are somewhat hyperinflated, likely representing COPD. There is mildly increased lung markings, suggestive of mild pulmonary congestion. No consolidation. Pleural spaces: Unremarkable. No pleural effusion. No pneumothorax. Heart/Mediastinum: Stable cardiomediastinal silhouette. Bones/joints: Unremarkable. XR/XR chest 1V portable [id number] IMPRESSION: Imaging findings of mild pulmonary congestion. COPD changes. ? Dictated By: Jamey Mccollum Signed By: Jamey Mccollum Signed Date/Time: 02/20/22 1442 DD/ 1338 Discharge Plan Discharge Patient Disposition: Admitted As Inpatient Clinical Impression: Bladder cancer, Acute pyelonephritis, Dehydration, Generalized weakness Condition: Stable Coding Level of Care Code ED [employer] for Chg Fwd Exam Comprehensive
--- NOTE | 2022-02-20 12:46 | XRR_ITS ---
PROCEDURE INFORMATION: Exam: XR Chest Exam date and time: 02/20/2022 1:38 PM Age: 76 years old Clinical indication: Pain; Right-sided; Additional info: R sided chest pain TECHNIQUE: Imaging protocol: Radiologic exam of the chest. Views: 1 view. COMPARISON: CR XR chest 2V* [id number] 12/31/2021 7:27 AM FINDINGS: Lungs: The lungs are somewhat hyperinflated, likely representing COPD. There is mildly increased lung markings, suggestive of mild pulmonary congestion. No consolidation. Pleural spaces: Unremarkable. No pleural effusion. No pneumothorax. Heart/Mediastinum: Stable cardiomediastinal silhouette. Bones/joints: Unremarkable. XR/XR chest 1V portable [id number] IMPRESSION: Imaging findings of mild pulmonary congestion. COPD changes.
--- NOTE | 2022-02-20 12:46 | CT_ITS ---
WS: [id number] CT HEAD TECHNIQUE: Noncontrast CT of the head obtained from the skullbase to the vertex. CLINICAL INFORMATION: fall COMPARISON: None. DLP: 1038.[address] scans at [facility] use at least one of these dose optimization techniques: automated e xposure control; mA and/or kV adjustment per patient size (includes targeted exams where dose is matc hed to clinical indication); or iterative reconstruction. FINDINGS: No evidence of intracranial hemorrhage or mass effect. Ventricular system and basal cisterns are mcfadden nt. Mild small vessel changes with moderate parenchymal volume loss. Vascular calcification. No extra -axial fluid collections. No evidence of mass or mass effect. Paranasal sinuses and mastoid air cells are well aerated. .Normal visualized soft tissues. Incidental venous lakes or arachnoid granulations in the occipital calvarium. CT/CT head wo con* [id number] IMPRESSION: 1. No evidence of intracranial hemorrhage or mass effect. 2. No acute intracranial findings.
[2022-02-20 13:23] LABS: Basophils # 0.1 10^3/uL (0.0-0.1); Basophils % 0.2 %; Hematocrit 40.3 % (42.0-52.0); Lymphocytes # 0.6 10^3/uL (0.8-4.8); Lymphocytes % 2.2 %; Mean Corpuscular HGB Conc 32.3 g/dL (30.0-36.0); Mean Corpuscular Hemoglobin 31.3 pg (28.0-34.0); Mean Corpuscular Volume 97.1 fl (80-94); Mean Platelet Volume 10.9 fL (7.4-10.4); Monocytes # 2.6 10^3/uL (0.2-0.9); Monocytes % 10.2 %; Neutrophils # 21.33 10^3/uL (1.8-7.7); Neutrophils % 85.5 %; Nucleated Red Blood Cells % 0 %; Platelet Count 193 10^3/cmm (130-400); Red Blood Count 4.15 10^6/uL (4.1-5.3); Red Cell Distribution Width 12.6 % (12.1-15.1)
[2022-02-20 13:35] LABS: Anion Gap 18.7 (5-19); Blood Urea Nitrogen 43 mg/dL (8-23); Calcium 8.9 mg/dL (8.5-10.5); Carbon Dioxide 24 mmol/L (22-29); Chloride 91 mmol/L (98-107); Glucose 219 mg/dL (65-115); Osmolality Calculated 286 mOsm/kg (285-295); Potassium 4.7 mmol/L (3.5-5.1); Sodium 129 mmol/L (136-145)
[2022-02-20 14:39] LABS: Bilirubin Urine Neg (Negative); Blood Urine 3+ (Negative); Glucose Urine UA Norm (Normal); Ketones Urine Negative (Negative); Nitrate Urine Positive (Negative); Protein Urine 3+ (Negative); Specific Gravity, Urine 1.015 (1.005-1.030); Urine Appearance Cloudy (CLEAR); Urine Color Amber (Yellow); pH Urine 6 (5-7)
[2022-02-20 14:40] LABS: Add Urine Microscopic? YES; Leukocyte Esterase Urine 2+ (Negative); Urobilinogen Urine Norm (Negative)
[2022-02-20 14:43] LABS: RBC Urine 15-25 /hpf (0-2); WBC Urine 15-25 /hpf (0-5)
--- NOTE | 2022-02-20 14:43 | CTR_ITS ---
PROCEDURE INFORMATION: Exam: CT Abdomen And Pelvis With Contrast Exam date and time: 02/20/2022 2:54 PM Age: 76 years old Clinical indication: Other: Weakness; Additional info: Bladder cancer, UTI, significant leukocytosis TECHNIQUE: Imaging protocol: Computed tomography of the abdomen and pelvis with contrast. Radiation optimization: All CT scans at this facility use at least one of these dose optimization techniques: automated exposure control; mA and/or kV adjustment per patient size (includes targeted exams where dose is matched to clinical indication); or iterative reconstruction. Contrast material: OMNIPAQUE 350; Contrast volume: 80 ml; Contrast route: INTRAVENOUS (IV); COMPARISON: CT abdomen pelvis wo/w [id number] 12/26/2021 8:36 AM RADIATION DOSE METRICS: Total DLP (mGy-cm): 334.99 FINDINGS: Lungs: Centrilobular emphysema is present. Unchanged 0.7 cm elongated subpleural nodule in lateral the right lower lobe. No new nodule seen. No consolidation. Streaky bibasilar atelectasis seen. Liver: Normal. No mass. Gallbladder and bile ducts: Normal. No calcified stones. No ductal dilation. Pancreas: Normal. No ductal dilation. Spleen: Normal. No splenomegaly. Adrenal glands: Normal. No mass. Kidneys and ureters: See Urinary bladder finding. Adjacent to the left kidney, there is a short segment of small bowel demonstrating wall thickening and stranding of the adjacent fat, which may be secondary to inflammatory process in the kidney or enteritis. Stomach and bowel: See Kidneys and ureters finding. Appendix: No evidence of appendicitis. Intraperitoneal space: No free fluid or free air. Vasculature: Moderate diffuse atherosclerotic disease is present. Lymph nodes: Unremarkable. No enlarged lymph nodes. Urinary bladder: The urinary bladder is decompressed with a Guy catheter in place. Within the enlarged heterogeneous prostate and surrounding the Guy catheter, there is an irregular rim enhancing fluid collection measuring approximately 2.7 x 2.1 x 3.0 cm. There is marked diffuse thickening of the urinary bladder wall, highly concerning for cystitis. The previously seen urinary bladder wall mass is not clearly identified in the current examination. There is heterogeneous enhancement and decreased attenuation of the left kidney in association with stranding of the surrounding fat and thickening of the collecting system wall, consistent with pyelonephritis. There is a subcentimeter cyst in the right upper kidney, which is otherwise unremarkable. Reproductive: See Urinary bladder finding. Bones/joints: Degenerative changes of the spine seen. Soft tissues: Unremarkable. CT/CT abdomen pelvis w con* [id number] IMPRESSION: 1. Enlarged heterogeneous prostate with irregular rim enhancing fluid collection surrounding the Guy catheter, concerning for abscess/infectious process superimposed in prostatomegaly. 2. Imaging findings of left pyelonephritis and cystitis. Previously seen urinary bladder mass is not clearly identified. 3. Short segment of small bowel inflammation adjacent to the left kidney, which may be secondary to inflammatory process in the kidney or represent enteritis.
[2022-02-20 14:44] LABS: Add Urine Culture? Yes; Bacteria Urine 2+ /hpf
[2022-02-20] MEDS: iohexol 350 mg/mL 100 mL Btl IV (15:00)
[2022-02-20] MEDS: cefTRIAXone 1,000 MG in sodium chloride 0.9% (plus) 50 ML 100 MG IV (15:20)
--- NOTE | 2022-02-20 15:58 | PM.HP ---
Providers/Chief Complaint Primary Care Provider: Negar Sylvester DO Chief Complaint: WEAKNESS/ FALL/ BLOOD IN URINE History of Present Illness Joe Lawson is a 76 year old male with past medical history of hypertension, hypothyroidism, recent diagnosis of bladder cancer undergoing further planning for definitive treatment at [facility] with bladder extravasation and chemotherapy, chronic Guy which was last changed on Sunday 02/18 presents to the ER today because of generalized weakness he has been getting worse for last 1 week along with a fall. As per the who is at bedside since Guy catheter was changed he has had difficulty in passing urine. On he was in the urgent care where they they had to flush the Guy catheter to remove a blood clot. Since yesterday evening patient has been having difficulty in getting his usual ADLs done today when he was trying to sit on the chair he missed and fell to the ground hence he was brought to the ER. In the ER he was thought to have pyelonephritis versus prostatic abscess for which Dr. Sanabria was consulted and plans to continue treatment for possible pyelonephritis. He has been given vancomycin and IV ceftriaxone along with 1 L of IV fluids. Review of Systems General: Reports: 10 or more systems reviewed and unremarkable except in HPI and below Const: Denies: fever(s), chills, body aches, change in appetite, change in weight, malaise, night sweats, diaphoresis, change in sleep pattern, daytime sleepiness or snoring Eyes: Denies: change in vision, blurry vision, photophobia, eye discomfort or eye discharge ENMT: Denies: throat pain, enlarged tonsils, hoarseness, mouth pain, oral sores, dry mouth, tinnitus, nasal congestion or post nasal drip Card: Denies: chest pain, palpitations, irregular heart rhythm, edema, swelling of feet/ankles, lightheadedness, syncope, pre-syncope, dyspnea on exertion, orthopnea, leg pain with exertion or acrocyanosis Resp: Denies: dyspnea, productive cough, non-productive cough, wheezing, stridor, pain on inspiration, change in phlegm color, hemoptysis or chest congestion GI: Denies: abdominal pain, nausea, vomiting, hematemesis, coffee ground emesis, dysphagia, heartburn, diarrhea, constipation, bloating, GI cramping, change in bowel habits, pain on defecation, hematochezia or melena : Denies: flank pain, difficulty urinating, dysuria, urinary frequency, urinary urgency, urinary hesitancy, urinary dribbling, difficulty starting urination, change in urine stream, nocturia or hematuria Musc: Denies: neck pain, back pain, extremity pain, joint pain, joint swelling, joint redness, joint stiffness or limited range of motion Neuro: Denies: headache(s), numbness in extremities, weakness in extremities, sensory changes, lack of coordination, difficulty walking, frequent falls, dizziness, vertigo, confusion, Slurred speech present, difficulty communicating thoughts or seizure-like activity Psych: Denies: anxiety, depression, mood swings, panic attacks, hopelessness or irritability Endo: Denies: polyuria, polydipsia, tired all the time, cold intolerance, excessive sweating, flushing or heat intolerance Diallo/Lymph: Denies: easy bruising or easy bleeding All/Imm: Denies: tongue swelling, facial swelling or acute wheezing Medications/Allergies Home Medications Medication Instructions Recorded Confirmed Last Taken Type lisinopril 20 mg tablet 20 mg PO QAM 12/10/21 02/20/22 02/20/22 History albuterol sulfate 90 mcg/actuation 2 puff inhalation Q6H PRN 01/01/22 02/20/22 Unknown History aerosol inhaler Shortness Of Breath levothyroxine 75 mcg tablet 75 mcg PO QAM 01/01/22 02/20/22 02/20/22 History (Euthyrox) vit C 250 mg-E 90 mg-zinc 40 1 tab PO BEDTIME 01/01/22 02/20/22 Unknown History mg-copper 1 [id number] chew tablet (PreserVision AREDS-2) hydrocodone 5 mg-acetaminophen 325 1 tab PO Q6H PRN pain 30 days #120 01/15/22 02/20/22 Unknown Rx mg tablet tabs budesonide 0.5 mg/2 mL suspension 0.5 mg inhalation QAM PRN 01/21/22 02/20/22 Unknown History for nebulization Shortness Of Breath Or Wheezing Allergies Allergy/AdvReac Type Severity Reaction Status Date / Time No Known Allergies Allergy Verified 02/20/22 14:27 PFSH Acute PFSH: Medical History (Updated 02/20/22 @ 15:59 by Naveed De Los Santos MD) Chronic indwelling Guy catheter COPD (chronic obstructive pulmonary disease) Essential tremor Gross hematuria Hypertension Hypothyroidism Incomplete bladder emptying Primary malignant neoplasm of overlapping sites of bladder Surgical History H/O transurethral destruction of bladder lesion (12/31/21) Family History Mother , age 93 CAD (coronary artery disease) Father , at age 78 Cancer lung Brother , at 83 Cancer colon Sister , Age 79 No problems noted. Other Diabetes Hypertension Lung disease Social History Smoking and tobacco status: current every day smoker cigarettes Packs smoked per day: 0.5 Years cigarettes smoked: 70 Alcohol intake: never Lives independently: Yes Household members: spouse Marital status: Current occupational status: retired History of recent travel: No Vitals/I&O/Wt Last Vital Signs Temp 98.7 F 02/20/22 12:21 Pulse 101 H 02/20/22 15:21 Resp 18 02/20/22 15:21 BP 135/68 02/20/22 15:21 Pulse Ox 95 02/20/22 15:21 O2 Del Method 02/20/22 15:21 Weight last 48 hrs Weight 54.431 kg Physical Exam Narrative: EXAM NARRATIVE: General: No acute distress, AO x3, chronically sick appearing, dehydrated HEENT: PERRLA, pupils bilaterally equal and reactive Chest: Bilateral bronchial breath sounds, occasional rhonchi all over the lung la, CVS: S1-S2 regular, no murmurs, no tachycardia, no gallops, no rubs Abdomen: Soft, nontender, no organomegaly, bowel sounds present, morbidly obese Neuro: No focal deficits, no facial deformity, AO x3, power 5/5 in all limbs Guy catheter present with concentrated urine Data : 02/20/22 12:40 02/20/22 12:40 A&P Assessment and plan (1) Generalized weakness: (2) Dehydration: (3) Acute pyelonephritis: (4) Acute kidney injury: (5) Hyponatremia: (6) Chronic indwelling Guy catheter: (7) Primary malignant neoplasm of overlapping sites of bladder: Plan Generalized weakness: Most likely secondary to chronic illness along with pyelonephritis. Physical therapy evaluation. Soft diet with protein shakes. Check iron panel, vitamin B12, folate level, TSH. Acute pyelonephritis: CT abdomen pelvis results appreciated. Concern for prostatic abscess. Care discussed in detail with Dr. Sanabria. As per him chances of prostatic abscess are low. Check blood culture, MRSA swab, urine culture. For now start patient on vancomycin and Zosyn. IV fluids with normal saline at 50 cc/h. Acute kidney injury/hyponatremia: Most likely secondary dehydration. IV fluids as above. Medical reconciliation done for nephrotoxic drugs. Hold off on lisinopril for now. Monitor BMP daily for now. Monitor urine output. Chronic indwelling Guy catheter Malignant neoplasm of bladder. COPD: Not in exacerbation. DuoNebs as needed. Hypothyroidism: Analgesia: Hydrocodone every 6 hours as needed Glycemic control: Not needed. Check A1c. Nutrition: Soft mechanical diet. Protein shake with each meal. CODE STATUS: Discussed in detail with patient and patient's who is DPOA at bedside. Full code. PUD prophylaxis: Famotidine DVT prophylaxis: Heparin 5000 every 12 hourly Discharge planning: Discussed in detail with patient's . We discussed options of home with home health versus SNF. They do not want to go to SNF. Agreeable with home with home health. Admit to [facility]. This documentation was created by [employer] hazardous materials handler software. Every effort was made to ensure accuracy of hazardous materials handler. Any obvious errors or omissions should be clarified with the author of the document. Attestations Medical Necessity Statement*: Admission for more than 2 midnights for management of acute pyonephritis, acute kidney injury along with hyponatremia leading to generalized weakness in a patient with advanced age and malignant neoplasm of the bladder Time Spent in Patient Care: Greater than 35 minutes Coding Level of Care Code Acute Community Music Therapist for [facility] Fwd Diagnoses Generalized weakness R53.1 Dehydration E86.0 Acute pyelonephritis N10 Acute kidney injury N17.9 Hyponatremia E87.1 Chronic indwelling Guy catheter Z97.8 Primary malignant neoplasm of overlapping sites of bladder C67.8
[2022-02-20] MEDS: vancomycin 1,000 MG in sodium chloride 0.9% 250 ML 250 MG IV (16:00)
[2022-02-20] MEDS: sodium chloride 0.9% 1,000 ML 999 ML IV (16:11)
[2022-02-20 17:12] LABS: Thyroid Stimulating Hormone 2.96 uIU/mL (0.27-4.20)
[2022-02-20 18:15] LABS: Procalcitonin 19.08 ng/mL (0-0.5)
[2022-02-20] MEDS: docusate sodium 100 mg Capsule PO (18:17)
[2022-02-20] MEDS: ferrous gluconate 324 mg Tablet PO (18:17)
[2022-02-20] MEDS: famotidine 20 mg/2 mL INJ IVP (18:18)
[2022-02-20] MEDS: heparin 5,000 unit/mL INJ 1 mL 5000 UNIT SUBCUT (18:18)
[2022-02-20] MEDS: sodium chloride 0.9% 1,000 ML 50 ML IV (18:18)
[2022-02-20] MEDS: piperacillin-tazobactam 3.375 GM in sodium chloride 0.9% (plus) 50 ML IV (18:19)
[2022-02-20 18:26] LABS: Iron 16 ug/dL (59-158); Percent Saturation 7.3 % (20-50); Total Iron Binding Capacity 218 mcg/dl; Unsaturated Iron Binding 202 ug/dL (112-347)
[2022-02-20 19:15] LABS: Vitamin B12 > 2000 pg/mL (232-1245)
[2022-02-20 20:41] LABS: Folate Level 12.6 ng/mL (4.5-32.2)
[2022-02-21] VITALS (12 sets, daily range): BP systolic 96–144; BP diastolic 55–70; PULSE 63–96; RESP 16–24; TEMP 36.4–38.4; O2SAT 92–96
[2022-02-21] MEDS: piperacillin-tazobactam 3.375 GM in sodium chloride 0.9% (plus) 50 ML IV (01:52)
[2022-02-21] MEDS: ipratropium-albuterol 3 mL Neb INHALATION ×2 (02:17→07:24)
[2022-02-21] MEDS: famotidine 20 mg/2 mL INJ IVP ×2 (04:54→17:58)
[2022-02-21 05:14] LABS: Basophils % 0.2 %; Hemoglobin 11.1 g/dL (11.7-16.6); Lymphocytes # 0.8 10^3/uL (0.8-4.8); Lymphocytes % 4.9 %; Mean Corpuscular HGB Conc 31.7 g/dL (30.0-36.0); Mean Corpuscular Hemoglobin 31.4 pg (28.0-34.0); Mean Corpuscular Volume 98.9 fl (80-94); Mean Platelet Volume 10.3 fL (7.4-10.4); Monocytes # 1.5 10^3/uL (0.2-0.9); Monocytes % 9.6 %; Neutrophils # 13.26 10^3/uL (1.8-7.7); Neutrophils % 83.9 %; Nucleated Red Blood Cells % 0 %; Platelet Count 158 10^3/cmm (130-400); Red Blood Count 3.54 10^6/uL (4.1-5.3); Red Cell Distribution Width 12.7 % (12.1-15.1); White Blood Count 15.8 10^3/uL (4.0-10.0)
[2022-02-21 05:35] LABS: Alanine Aminotransferase 102 U/L (0-41); Albumin Level 2.4 g/dL (3.5-5.2); Alkaline Phosphatase 207 U/L (40-130); Anion Gap 14.2 (5-19); Aspartate Amino Transferase 44 U/L (0-40); Blood Urea Nitrogen 33 mg/dL (8-23); Calcium 8.1 mg/dL (8.5-10.5); Carbon Dioxide 25 mmol/L (22-29); Chloride 98 mmol/L (98-107); Chol HDL Ratio 2.32 mg/dL (1.0-5.00); Cholesterol 116 mg/dL (0-200); Glucose 131 mg/dL (65-115); HDL Cholesterol 50 mg/dL (60-100); LDL Cholesterol Calculated 52 mg/dL (50-129); Magnesium 1.9 mg/dL (1.7-2.3); Osmolality Calculated 285 mOsm/kg (285-295); Phosphorus 2.5 mg/dL (2.5-4.5); Potassium 4.2 mmol/L (3.5-5.1); Sodium 133 mmol/L (136-145); Total Bilirubin 0.5 mg/dL (0.15-1.2); Total Protein 5.4 g/dL (6.6-8.7); Triglycerides 70 mg/dL (0-150); VLDL Cholestrol Calculation 14 mg/dL (0-30)
[2022-02-21] MEDS: levothyroxine 75 mcg Tablet PO (05:40)
[2022-02-21] MEDS: heparin 5,000 unit/mL INJ 1 mL 5000 UNIT SUBCUT ×2 (05:40→17:58)
[2022-02-21 05:45] LABS: Estmated Average Glucose 123; Hemoglobin A1C 5.9 % (4.0-6.0)
[2022-02-21] MEDS: budesonide 0.5 mg/2 mL Neb INHALATION (07:24)
[2022-02-21] MEDS: ferrous gluconate 324 mg Tablet PO ×2 (08:26→17:55)
[2022-02-21] MEDS: docusate sodium 100 mg Capsule PO (08:26)
[2022-02-21] MEDS: amlodipine 10 mg Tablet PO (08:26)
--- NOTE | 2022-02-21 12:18 | P.PN_ITS ---
Subjective Subjective: No acute events overnight. T-max since admission 100.4 Fahrenheit. Patient states he is feeling little better. As per patient is slightly more hydrated. Otherwise hemodynamically stable. Vitals/I&O/Wt Last Vital Signs Temp 99.8 F H 02/21/22 12:00 Pulse 84 02/21/22 12:00 Resp 18 02/21/22 12:00 BP 108/55 02/21/22 12:00 Pulse Ox 95 02/21/22 12:00 O2 Del Method 02/21/22 12:00 O2 Flow Rate 3 02/21/22 08:00 02/20/22 02/21/22 02/21/22 22:59 06:59 14:59 Intake Total 290 / 290 170 / 460 250 / 250 Output Total 600 / 600 Balance 290 / 290 -430 / -140 250 / 250 Weight last 48 hrs Weight 63.503 kg Weight 54.431 kg Weight 54.431 kg Physical Exam Narrative: EXAM NARRATIVE: General: No acute distress, AO x3, chronically sick appearing, HEENT: PERRLA, pupils bilaterally equal and reactive Chest: Bilateral bronchial breath sounds, occasional rhonchi all over the lung la, CVS: S1-S2 regular, no murmurs, no tachycardia, no gallops, no rubs Abdomen: Soft, nontender, no organomegaly, bowel sounds present, morbidly obese Neuro: No focal deficits, no facial deformity, AO x3, power 5/5 in all limbs Guy catheter present with concentrated urine Data : 02/21/22 04:51 02/21/22 04:51 Micro: Microbiology 02/20/22 14:15 Urine Culture - Preliminary Urine,Clean Catch Gram Negative Rods 02/20/22 16:59 Blood Culture - Preliminary Blood SPECIMEN COLLECTED 02/20/22 17:03 Blood Culture - Preliminary Blood SPECIMEN COLLECTED A&P Assessment and plan (1) Generalized weakness: (2) Dehydration: (3) Acute pyelonephritis: (4) Acute kidney injury: (5) Hyponatremia: (6) Chronic indwelling Guy catheter: (7) Primary malignant neoplasm of overlapping sites of bladder: (8) Leukocytosis: (9) Transaminitis: Plan Generalized weakness: Most likely secondary to chronic illness along with pyelonephritis. Physical therapy evaluation. Soft diet with protein shakes. Appreciate iron panel for severe iron deficiency anemia, appropriate vitamin B12 and folate levels along with. Acute pyelonephritis: CT abdomen pelvis results appreciated. Concern for prostatic abscess. Care discussed in detail with Dr. Sanabria. As per him chances of prostatic abscess are low. Blood cultures so far negative, urine culture growing gram-negative rods. Regular rate speciation and sensitivity. MRSA swab pending. For now start patient on vancomycin and Zosyn. Increase IV fluids with normal saline at 75 cc/h. Acute kidney injury/hyponatremia: Most likely secondary dehydration. Baseline creatinine seems to be around 1.3 recently. Increase IV fluids as above. Medical reconciliation done for nephrotoxic drugs. Hold off on lisinopril for now. Monitor BMP daily for now. Monitor urine output. Chronic indwelling Guy catheter Malignant neoplasm of bladder. COPD: Not in exacerbation. DuoNebs as needed. Hypothyroidism: Transaminitis: Most likely secondary to acute infection. Continue to monitor daily for now. Analgesia: Hydrocodone every 6 hours as needed Glycemic control: Not needed. Check A1c. Nutrition: Soft mechanical diet. Protein shake with each meal. CODE STATUS: Discussed in detail with patient and patient's who is DPOA at bedside. Full code. PUD prophylaxis: Famotidine DVT prophylaxis: Heparin 5000 every 12 hourly Discharge planning: Discussed in detail with patient's . We discussed options of home with home health versus SNF. They do not want to go to SNF. Agreeable with home with home health. Admit to [facility]. This documentation was created by [employer] metallographic technician software. Every effort was made to ensure accuracy of metallographic technician. Any obvious errors or omissions should be clarified with the author of the document. Attestations Medical Necessity Statement*: Requires further hospitalization for management of acute pyelonephritis in a patient with bladder cancer with chronic indwelling Guy, generalized weakness and acute kidney injury Time Spent in Patient Care: Greater than 35 minutes Coding Level of Care Code Acute Welder Pipe Making for g Fwd Diagnoses Generalized weakness R53.1 Dehydration E86.0 Acute pyelonephritis N10 Acute kidney injury N17.9 Hyponatremia E87.1 Chronic indwelling Guy catheter Z97.8 Primary malignant neoplasm of overlapping sites of bladder C67.8 Leukocytosis D72.829 Transaminitis R74.01
--- NOTE | 2022-02-21 13:38 | P.CONIM_ITS ---
Providers/Reason For Consult Consulting Physician/Specialty*: Urology/Sanabria Reason for Consult*: Prostate cancer, UTI Requesting Physician: Dr. De Los Santos Attending Physician: Naveed De Los Santos MD Primary Care Provider: Negar Sylvester DO History of Present Illness History of Present Illness Joe Lawson is a 76 year old male well-known to me for recent diagnosis of muscle invasive high-grade transitional cell carcinoma complicated by multiple medical problems. He has been evaluated by oncology (Dr. Tyson) and minimally invasive urologic surgeon Dr. Olivares in [place]. Work-up is still ongoing regarding appropriateness of therapy. I believe he has a follow-up later this coming week with Dr. Olivares and oncology in [place]. Patient was admitted yesterday with evidence of UTI. CT scan demonstrated evidence of left pyelonephritis and possible prostatic abscess. The findings in the prostate were not definitive and could very well represent rather than a collection of fluid such as an abscess more localized tissue infection. I believe the latter is more likely. He has been admitted and treated with IV antibiotics with clinical improvement. White count has decreased from 25,000 down to 15,000. Urine is growing greater than 100,000 colonies of gram-negative rods. Identification pending. So far blood cultures are negative. Long talk with his today regarding his status. I have reviewed his films and records available both oncology and inpatient No further recommendations at this point beyond what is already being done. Would consider repeat imaging possible prostatic ultrasound if there is a worsening of his condition from a infectious perspective Will follow Review of Systems Const: Reports: fatigue and malaise; Denies: fever(s) Eyes: Denies: eye discharge ENMT: Denies: hoarseness Card: Denies: chest pain or palpitations Resp: Reports: wheezing (Periodically) GI: Reports: abdominal pain; Denies: nausea : Reports: other (Urinary retention, intermittent gross hematuria) Musc: Denies: joint redness Skin/Breast: Denies: sores Neuro: Reports: weakness in extremities, difficulty walking and behavioral changes; Denies: Slurred speech present Endo: Denies: flushing Diallo/Lymph: Denies: easy bleeding Medications/Allergies Home Medications Medication Instructions Recorded Confirmed Last Taken Type lisinopril 20 mg tablet 20 mg PO QAM 12/10/21 02/20/22 02/20/22 History albuterol sulfate 90 mcg/actuation 2 puff inhalation Q6H PRN 01/01/22 02/20/22 Unknown History aerosol inhaler Shortness Of Breath levothyroxine 75 mcg tablet 75 mcg PO QAM 01/01/22 02/20/22 02/20/22 History (Euthyrox) vit C 250 mg-E 90 mg-zinc 40 1 tab PO BEDTIME 01/01/22 02/20/22 Unknown History mg-copper 1 [id number] chew tablet (PreserVision AREDS-2) hydrocodone 5 mg-acetaminophen 325 1 tab PO Q6H PRN pain 30 days #120 01/15/22 02/20/22 Unknown Rx mg tablet tabs budesonide 0.5 mg/2 mL suspension 0.5 mg inhalation QAM PRN 01/21/22 02/20/22 Unknown History for nebulization Shortness Of Breath Or Wheezing Allergies Allergy/AdvReac Type Severity Reaction Status Date / Time No Known Allergies Allergy Verified 02/20/22 14:27 Current Medications Generic Name Dose Route Start Last Admin Trade Name Freq PRN Reason Stop Dose Admin Albuterol/Ipratropium 3 ml 02/20/22 17:51 02/21/22 07:24 Ipratropium-Albuterol 3 Ml Neb INHALATION 3 ml Q6H PRN Administration SHORTNESS OF BREATH Amlodipine Besylate 10 mg 02/21/22 09:00 02/21/22 08:26 Amlodipine 10 Mg Tablet PO 10 mg DAILY KIMBERLY Administration Budesonide 0.5 mg 02/21/22 08:00 02/21/22 07:24 Budesonide 0.5 Mg/2 Ml Neb INHALATION 0.5 mg DAILY.RESPIRATORY KIMBERLY Administration Docusate Sodium 100 mg 02/20/22 18:00 02/21/22 08:26 Docusate Sodium 100 Mg Capsule PO 100 mg BID KIMBERLY Administration Famotidine 20 mg 02/20/22 17:51 02/21/22 04:54 Famotidine 20 Mg/2 Ml Inj IVP 20 mg Q12H KIMBERLY Administration Ferrous Gluconate 324 mg 02/20/22 18:00 02/21/22 08:26 Ferrous Gluconate 324 Mg Tablet PO 324 mg BIDWM KIMBERLY Administration Heparin Sodium (Porcine) 5,000 unit 02/20/22 18:30 02/21/22 05:40 Heparin 5,000 Unit/Ml Inj 1 Ml SUBCUT 5,000 unit Q12H KIMBERLY Administration Sodium Chloride 1,000 mls @ 75 mls/hr 02/20/22 17:51 02/20/22 18:18 Sodium Chloride 0.9% IV 50 mls/hr .[id number] KIMBERLY Administration Imipenem/Cilastatin Sodium 250 100 mls @ 200 mls/hr 02/21/22 10:00 02/21/22 11:43 mg/ Sodium Chloride IV Infused Q6H KIMBERLY Infusion Protocol Levothyroxine Sodium 75 mcg 02/21/22 06:00 02/21/22 05:40 Levothyroxine 75 Mcg Tablet PO 75 mcg QAM KIMBERLY Administration PFSH Acute PFSH: Medical History Chronic indwelling Guy catheter COPD (chronic obstructive pulmonary disease) Essential tremor Gross hematuria Hypertension Hypothyroidism Incomplete bladder emptying Primary malignant neoplasm of overlapping sites of bladder Surgical History H/O transurethral destruction of bladder lesion (12/31/21) Family History Mother , age 93 CAD (coronary artery disease) Father , at age 78 Cancer lung Brother , at 83 Cancer colon Sister , Age 79 No problems noted. Other Diabetes Hypertension Lung disease Social History Smoking and tobacco status: current every day smoker cigarettes Packs smoked per day: 0.5 Years cigarettes smoked: 70 Alcohol intake: never Lives independently: Yes Household members: spouse Marital status: Current occupational status: retired History of recent travel: No Vitals/I&O/Wt Last Vital Signs Temp 99.8 F H 02/21/22 12:00 Pulse 84 02/21/22 12:00 Resp 18 02/21/22 12:00 BP 108/55 02/21/22 12:00 Pulse Ox 95 02/21/22 12:00 O2 Del Method 02/21/22 12:00 O2 Flow Rate 3 02/21/22 08:00 02/20/22 02/21/22 02/21/22 22:59 06:59 14:59 Intake Total 290 / 290 170 / 460 350 / 350 Output Total 600 / 600 Balance 290 / 290 -430 / -140 350 / 350 Weight last 48 hrs Weight 140 lb Weight 120 lb Weight 120 lb Physical Exam Narrative: No acute distress No labored respiration or audible wheezes Urine is yellow clear no longer concentrated, Guy catheter functioning well Data : 02/21/22 04:51 02/21/22 04:51 Micro: Microbiology 02/20/22 14:15 Urine Culture - Preliminary Urine,Clean Catch Gram Negative Rods 02/20/22 16:59 Blood Culture - Preliminary Blood SPECIMEN COLLECTED 02/20/22 17:03 Blood Culture - Preliminary Blood SPECIMEN COLLECTED A&P Assessment and plan (1) Bladder cancer: Muscle invasive. Evaluation for attempt at definitive therapy still ongoing. (2) Acute pyelonephritis: Hypoperfusion consistent with left pyelonephritis (3) Acute prostatitis: Clear inflammatory process in the prostate but not convinced there is actually a prostatic abscess. (4) Acute urinary retention: (5) Chronic indwelling Guy catheter: Changed recently Consult Attestations Medical Necessity Statement: See attending Coding Level of Care Code Acute Power Plant Operations Manager for [facility] Diagnoses Bladder cancer C67.9 Acute pyelonephritis N10 Acute prostatitis N41.0 Acute urinary retention R33.8 Chronic indwelling Guy catheter Z97.8
[2022-02-21] MEDS: acetaminophen 325 mg Tablet 650 MG PO (15:58)
[2022-02-21] MEDS: sodium chloride 0.9% 1,000 ML 50 ML IV (15:58)
[2022-02-22] VITALS (8 sets, daily range): BP systolic 111–143; BP diastolic 61–72; PULSE 75–90; RESP 16–24; TEMP 36.3–38.3; O2SAT 93–97
[2022-02-22] MEDS: acetaminophen 325 mg Tablet 650 MG PO (03:57)
[2022-02-22 05:16] LABS: Basophils % 0.2 %; Eosinophils % 0.1 %; Hematocrit 30.3 % (42.0-52.0); Lymphocytes # 0.6 10^3/uL (0.8-4.8); Lymphocytes % 6.3 %; Mean Corpuscular Volume 93.8 fl (80-94); Monocytes % 9.6 %; Neutrophils # 8.45 10^3/uL (1.8-7.7); Neutrophils % 83.1 %; Nucleated Red Blood Cells % 0 %; Platelet Count 164 10^3/cmm (130-400); Red Blood Count 3.23 10^6/uL (4.1-5.3); Red Cell Distribution Width 12.6 % (12.1-15.1); White Blood Count 10.2 10^3/uL (4.0-10.0)
[2022-02-22] MEDS: heparin 5,000 unit/mL INJ 1 mL 5000 UNIT SUBCUT ×2 (05:33→17:31)
[2022-02-22] MEDS: levothyroxine 75 mcg Tablet PO (05:34)
[2022-02-22] MEDS: famotidine 20 mg/2 mL INJ IVP ×2 (05:36→17:31)
[2022-02-22 05:43] LABS: Alanine Aminotransferase 82 U/L (0-41); Albumin Level 2.2 g/dL (3.5-5.2); Alkaline Phosphatase 183 U/L (40-130); Anion Gap 12.7 (5-19); Aspartate Amino Transferase 37 U/L (0-40); Blood Urea Nitrogen 26 mg/dL (8-23); Calcium 7.6 mg/dL (8.5-10.5); Carbon Dioxide 23 mmol/L (22-29); Chloride 98 mmol/L (98-107); Globulin 2.9 g/dL (1.3-4.6); Glucose 112 mg/dL (65-115); Osmolality Calculated 276 mOsm/kg (285-295); Potassium 3.7 mmol/L (3.5-5.1); Sodium 130 mmol/L (136-145); Total Bilirubin 0.3 mg/dL (0.15-1.2); Total Protein 5.1 g/dL (6.6-8.7)
[2022-02-22 05:47] LABS: Procalcitonin 8.78 ng/mL (0-0.5)
[2022-02-22] MEDS: budesonide 0.5 mg/2 mL Neb INHALATION (07:20)
[2022-02-22] MEDS: ipratropium-albuterol 3 mL Neb INHALATION (07:20)
[2022-02-22] MEDS: amlodipine 10 mg Tablet PO (08:30)
[2022-02-22] MEDS: docusate sodium 100 mg Capsule PO ×2 (08:30→17:31)
[2022-02-22] MEDS: ferrous gluconate 324 mg Tablet PO ×2 (08:30→17:31)
--- NOTE | 2022-02-22 09:11 | PM.PN ---
Subjective Subjective: Urology follow-up: Hospital day #2 for treatment of severe UTI with likely acute prostatitis as well as left pyelonephritis. Family thinks he is improved clinically with more clarity of thinking, better color, and overall with less complaints. Urologic findings today: Urine remains clear Prostate exam reveals no evidence of fluctuance or traumatic tenderness supporting previous impression of unlikely prostatic abscess. Reviewed with the family again today where he stands including current blood test etc. They are worried about his lack of appetite. Discussed again the sequence of events of further evaluation for definitive therapy for his high-grade muscle invasive bladder cancer. We did discuss his overall increased risk because of underlying comorbidities as well as bladder cancer, high risk. He had an appointment tentatively plan for this week and [facility] with his urologic surgeon Dr. Olivares which may have to be postponed until he can adequately recover from the infection. Labs reviewed today. See below Medications: Reviewed: Yes Vitals/I&O/Wt Last Vital Signs Temp 97.3 F L 02/22/22 08:00 Pulse 79 02/22/22 08:00 Resp 21 H 02/22/22 08:00 BP 121/61 02/22/22 08:00 Pulse Ox 97 02/22/22 08:00 O2 Del Method 02/22/22 07:22 O2 Flow Rate 3 02/22/22 08:32 02/21/22 02/22/22 02/22/22 22:59 06:59 14:59 Intake Total 300 / 1650 540 / 2190 Output Total 950 / 950 550 / 1500 Balance -650 / 700 -10 / 690 Weight last 48 hrs Weight 141 lb Weight 140 lb Weight 120 lb Weight 120 lb Physical Exam Narrative: Alert, no acute distress Baseline tremor HEENT: Hard of hearing No labored respiration Abdomen is soft. No palpable masses. No surgical abdomen. Genitourinary exam: Normal phallus without lesions. Circumcised. Scrotum mildly edematous with both testicles palpably normal but some tenderness on the left which he relates more to chronic. No evidence of epididymitis. Perineum benign CHRISTINA: Prostate is not exquisitely tender. There is no fluctuance consistent with an abscess. Urine is clear/pale yellow. Psychiatric: Pleasant and cooperative throughout exam. Cognitively following conversation. Data : 02/22/22 04:55 02/22/22 04:55 Micro: Microbiology 02/22/22 05:00 Blood Culture - Preliminary Blood SPECIMEN COLLECTED 02/22/22 04:55 Blood Culture - Preliminary Blood SPECIMEN COLLECTED 02/20/22 17:03 Blood Culture - Preliminary Blood NEGATIVE TO DATE 02/20/22 16:59 Blood Culture - Preliminary Blood NEGATIVE TO DATE 02/20/22 14:15 Urine Culture - Preliminary Urine,Clean Catch Gram Negative Rods A&P Assessment and plan (1) Bladder cancer: Muscle invasive. Evaluation for attempt at definitive therapy still ongoing. Will need to recover first from his infection (2) Acute pyelonephritis: Hypoperfusion consistent with left pyelonephritis. Clinical picture seems to be improving (3) Acute prostatitis: Clear inflammatory process in the prostate but not convinced there is actually a prostatic abscess. CHRISTINA today shows no evidence of abscess (4) Acute urinary retention: (5) Chronic indwelling Guy catheter: Changed recently Plan 1. Continue antibiotic therapy 2. Continue Guy catheter 3. Back to [facility] when capable for completion of evaluation for surgical options. Reviewed with the family that at risk may be too high given his other comorbidities. Apparently has a stress test pending which will be an important variable in assessing his risks associated with attempt at definitive therapy for bladder cancer. Attestations Medical Necessity Statement*: See attending Coding Level of Care Code Acute Coke Burner for [facility] Fwd Diagnoses Bladder cancer C67.9 Acute pyelonephritis N10 Acute prostatitis N41.0 Acute urinary retention R33.8 Chronic indwelling Guy catheter Z97.8 Time Spent (min) 35 Comment Chart review, conversation with patient and family, physical exam, documentation
[2022-02-22] MEDS: sodium chloride 0.9% 1,000 ML 50 ML IV (11:39)
--- NOTE | 2022-02-22 12:05 | PM.PN ---
Subjective Subjective: No acute events overnight. Patient has remained hemodynamically stable. T-max in last 24 hours 101.3 Fahrenheit. Patient lying comfortably in bed sleeping. Wakes up during examination. On waking up is AOx3. Family at bedside. Worried about his poor oral intake. As per family nothing is tasting well to the patient. We discussed in detail regarding the etiology of patient's presentation and that the fever curve might take few days to improve. We did discuss right now he is on broad-spectrum antibiotics which are to be de-escalated once the culture results are back. Family were also concerned about further treatment plan for his cancer. For now family has been counseled in detail both by myself and Dr. Sanabria for taking it 1 step at a time and dealing with the infection now. We discussed that that further treatment plan would depend on his physical condition once he recovers from the infection and as per the decision of his outpatient oncologist. Medications: Reviewed: Yes Vitals/I&O/Wt Last Vital Signs Temp 97.8 F 02/22/22 12:00 Pulse 85 02/22/22 12:00 Resp 19 H 02/22/22 12:00 BP 111/66 02/22/22 12:00 Pulse Ox 95 02/22/22 12:00 O2 Del Method 02/22/22 07:22 O2 Flow Rate 3 02/22/22 08:32 02/21/22 02/22/22 02/22/22 22:59 06:59 14:59 Intake Total 300 / 1650 540 / 2190 984.167 / 984.167 Output Total 950 / 950 550 / 1500 Balance -650 / 700 -10 / 690 984.167 / 984.167 Weight last 48 hrs Weight 63.957 kg Weight 63.503 kg Weight 54.431 kg Weight 54.431 kg Physical Exam Narrative: EXAM NARRATIVE: General: No acute distress, AO x3, chronically sick appearing, HEENT: PERRLA, pupils bilaterally equal and reactive Chest: Bilateral bronchial breath sounds, occasional rhonchi all over the lung la, CVS: S1-S2 regular, no murmurs, no tachycardia, no gallops, no rubs Abdomen: Soft, nontender, no organomegaly, bowel sounds present, morbidly obese Neuro: No focal deficits, no facial deformity, AO x3, power 5/5 in all limbs Guy catheter present with concentrated urine Data : 02/22/22 04:55 02/22/22 04:55 Micro: Microbiology 02/21/22 01:50 MRSA Culture - Final Nose 02/22/22 05:00 Blood Culture - Preliminary Blood SPECIMEN COLLECTED 02/22/22 04:55 Blood Culture - Preliminary Blood SPECIMEN COLLECTED 02/20/22 17:03 Blood Culture - Preliminary Blood NEGATIVE TO DATE 02/20/22 16:59 Blood Culture - Preliminary Blood NEGATIVE TO DATE 02/20/22 14:15 Urine Culture - Preliminary Urine,Clean Catch Gram Negative Rods A&P Assessment and plan (1) Generalized weakness: (2) Dehydration: (3) Acute pyelonephritis: (4) Acute kidney injury: (5) Hyponatremia: (6) Chronic indwelling Ugy catheter: (7) Primary malignant neoplasm of overlapping sites of bladder: (8) Leukocytosis: (9) Transaminitis: (10) Acute prostatitis: (11) Acute urinary retention: Plan Generalized weakness: Most likely secondary to chronic illness along with pyelonephritis. Physical therapy evaluation. Soft diet with protein shakes. Appreciate iron panel for severe iron deficiency anemia, appropriate vitamin B12 and folate levels along with. Acute pyelonephritis: CT abdomen pelvis results appreciated. Concern for prostatic abscess. Care discussed in detail with Dr. Sanabria. As per him chances of prostatic abscess are low. Blood cultures so far negative, urine culture growing gram-negative rods. Regular rate speciation and sensitivity. MRSA swab pending. For now start patient on vancomycin and Zosyn. Increase IV fluids with normal saline at 75 cc/h. Acute kidney injury/hyponatremia: Most likely secondary dehydration. Baseline creatinine seems to be around 1.3 recently. Increase IV fluids as above. Medical reconciliation done for nephrotoxic drugs. Hold off on lisinopril for now. Monitor BMP daily for now. Monitor urine output. Chronic indwelling Guy catheter Malignant neoplasm of bladder. COPD: Not in exacerbation. DuoNebs as needed. Hypothyroidism: Transaminitis: Most likely secondary to acute infection. Continue to monitor daily for now. Analgesia: Hydrocodone every 6 hours as needed Glycemic control: Not needed. Check A1c. Nutrition: Soft mechanical diet. Protein shake with each meal. CODE STATUS: Discussed in detail with patient and patient's who is DPOA at bedside. Full code. PUD prophylaxis: Famotidine DVT prophylaxis: Heparin 5000 every 12 hourly Discharge planning: Discussed in detail with patient's . We discussed options of home with home health versus SNF. They do not want to go to SNF. Agreeable with home with home health. Continue care at [facility] floor. Plan for the day: MRSA negative so vancomycin discontinued. Zosyn changed to imipenem for broader spectrum of coverage given persistent leukocytosis and high-grade fever. Follow-up blood cultures and urine culture. De-escalate antibiotics as per culture results. Physical therapy. Switch Ensure to boost. This documentation was created by [employer] construction mgr software. Every effort was made to ensure accuracy of construction mgr. Any obvious errors or omissions should be clarified with the author of the document. Attestations Medical Necessity Statement*: Requires further hospitalization for management of complicated UTI, prostatitis in a patient with bladder cancer, with chronic indwelling Guy catheter physical deconditioning Time Spent in Patient Care: Greater than 35 minutes Coding Level of Care Code Acute Manager Shell for [facility] Fwd Diagnoses Generalized weakness R53.1 Dehydration E86.0 Acute pyelonephritis N10 Acute kidney injury N17.9 Hyponatremia E87.1 Chronic indwelling Guy catheter Z97.8 Primary malignant neoplasm of overlapping sites of bladder C67.8 Leukocytosis D72.829 Transaminitis R74.01 Acute prostatitis N41.0 Acute urinary retention R33.8
--- NOTE | 2022-02-22 18:51 | PC.NURSE ---
Report given to Diane LOPEZ at this time
[2022-02-23] VITALS (9 sets, daily range): BP systolic 128–146; BP diastolic 62–69; PULSE 60–85; RESP 17–20; TEMP 36.4–36.8; O2SAT 90–98
[2022-02-23 01:11] LABS: Potassium, Radom Urine 29 mmol/L; Urine Creatinine 64 mg/dL (39-259); Urine Random Chloride 106 mmol/L; Urine Random Sodium 98 mmol/L
[2022-02-23 05:34] LABS: Basophils % 0.2 %; Eosinophils % 0.1 %; Hematocrit 37.8 % (42.0-52.0); Lymphocytes % 10.4 %; Mean Corpuscular HGB Conc 31.7 g/dL (30.0-36.0); Mean Corpuscular Hemoglobin 31.1 pg (28.0-34.0); Mean Corpuscular Volume 97.9 fl (80-94); Mean Platelet Volume 10.9 fL (7.4-10.4); Monocytes # 1.1 10^3/uL (0.2-0.9); Monocytes % 11.4 %; Neutrophils # 7.47 10^3/uL (1.8-7.7); Neutrophils % 77.1 %; Nucleated Red Blood Cells % 0 %; Platelet Count 192 10^3/cmm (130-400); Red Blood Count 3.86 10^6/uL (4.1-5.3); Red Cell Distribution Width 12.7 % (12.1-15.1); White Blood Count 9.7 10^3/uL (4.0-10.0)
[2022-02-23 05:59] LABS: Alanine Aminotransferase 103 U/L (0-41); Albumin Level 2.4 g/dL (3.5-5.2); Alkaline Phosphatase 223 U/L (40-130); Anion Gap 17.1 (5-19); Aspartate Amino Transferase 55 U/L (0-40); Blood Urea Nitrogen 18 mg/dL (8-23); Calcium 8.5 mg/dL (8.5-10.5); Carbon Dioxide 23 mmol/L (22-29); Chloride 93 mmol/L (98-107); Globulin 3.7 g/dL (1.3-4.6); Glucose 90 mg/dL (65-115); Osmolality Calculated 269 mOsm/kg (285-295); Potassium 4.1 mmol/L (3.5-5.1); Sodium 129 mmol/L (136-145); Total Bilirubin 0.4 mg/dL (0.15-1.2); Total Protein 6.1 g/dL (6.6-8.7)
[2022-02-23] MEDS: levothyroxine 75 mcg Tablet PO (06:33)
[2022-02-23] MEDS: heparin 5,000 unit/mL INJ 1 mL 5000 UNIT SUBCUT ×2 (06:33→17:28)
[2022-02-23] MEDS: sodium chloride 0.9% 1,000 ML 50 ML IV (06:34)
[2022-02-23] MEDS: famotidine 20 mg/2 mL INJ IVP ×2 (06:41→17:28)
[2022-02-23] MEDS: ipratropium-albuterol 3 mL Neb INHALATION (08:45)
[2022-02-23] MEDS: budesonide 0.5 mg/2 mL Neb INHALATION (08:46)
[2022-02-23] MEDS: amlodipine 10 mg Tablet PO (09:39)
[2022-02-23] MEDS: ferrous gluconate 324 mg Tablet PO ×2 (09:40→17:28)
--- NOTE | 2022-02-23 10:53 | PM.PN ---
Subjective Subjective: States he is having poor appetite. He and his requests to advance diet from ground/pur?ed to soft mechanical. He has not done well with Ensure, it made him nauseated, but is trying some boost breeze. Denies any abdominal pain. Denies trouble breathing or chest pain. Vitals/I&O/Wt Last Vital Signs Temp 97.6 F 02/23/22 08:00 Pulse 79 02/23/22 08:49 Resp 20 H 02/23/22 08:49 BP 138/63 02/23/22 08:00 Pulse Ox 95 02/23/22 08:49 O2 Del Method 02/23/22 08:49 O2 Flow Rate 2 02/23/22 09:53 02/22/22 02/23/22 02/23/22 22:59 06:59 14:59 Intake Total 220 / 2849.094 2252.833 / 2350.000 Output Total 1400 / 1400 900 / 2300 Balance -1180 / -95.833 145.833 / 50.000 Weight last 48 hrs Weight 65.816 kg Weight 63.957 kg Weight 63.957 kg Physical Exam Narrative: Accompanied by his Const: COMMON NORMALS: alert GENERAL APPEARANCE: cooperative and frail appearing ORIENTATION/CONSCIOUSNESS: Yes awake OTHER: [place] HENMT: COMMON NORMALS: oropharynx normal Neck/C-Spine: COMMON NORMALS: no JVD Resp: COMMON NORMALS: normal respiratory effort and clear to auscultation bilaterally AUSCULTATION: clear to auscultation bilaterally Cardio: COMMON NORMALS: no JVD, regular rhythm, S1 normal heart sound present, S2 normal heart sound present and No murmurs present (Cardio) RHYTHM: regular rhythm HEART SOUNDS: S1 normal heart sound present and S2 normal heart sound present GI: COMMON NORMALS: Normal to inspection, nondistended, normoactive bowel sounds present, Soft to palpation and non-tender PALPATION: Yes Soft to palpation Extremity: COMMON NORMALS: no joint enlargement and no pedal edema Neuro: COMMON NORMALS: moves all extremities SENSORIUM/ORIENTATION: Yes alert Skin: COMMON NORMALS: no rashes or lesions noted GENERAL SKIN EXAM: no rashes or lesions noted Data : 02/23/22 04:29 02/23/22 04:29 Micro: Microbiology 02/22/22 05:00 Blood Culture - Preliminary Blood NEGATIVE TO DATE 02/22/22 04:55 Blood Culture - Preliminary Blood NEGATIVE TO DATE 02/21/22 01:50 MRSA Culture - Final Nose A&P Assessment and plan (1) Acute pyelonephritis: Growing gram-negative rods in urine. MRSA negative. Continue Primaxin. No longer on vancomycin. (2) Generalized weakness: He tried working with physical therapy today, felt encouraged. States will work further. His appetite has not been the best. Diet advanced to soft mechanical. His has gotten him some boost breeze, states that he had eaten some Magic cup. Continue to encourage oral nutrition as tolerating. Continue physical therapy. Was started on replacement for VANESSA. (3) Dehydration: Improved. Hold off further IV fluid for now. Encourage oral intake. (4) Acute kidney injury: Continuing to improve. (5) Hyponatremia: Sodium has been with some gradual decline. Hold IVF for now. Encourage p.o. intake. Recheck sodium. (6) Chronic indwelling Guy catheter: (7) Primary malignant neoplasm of overlapping sites of bladder: (8) Leukocytosis: (9) Transaminitis: (10) Acute prostatitis: (11) Acute urinary retention: Plan Chronic indwelling Guy catheter Malignant neoplasm of bladder. COPD: Not in exacerbation. DuoNebs as needed. Hypothyroidism: Transaminitis: Most likely secondary to acute infection. Continue to monitor daily for now. Discharge planning: Discussed in detail with patient's . We discussed options of home with home health versus SNF. They do not want to go to SNF. Agreeable with home with home health. This documentation was created by [employer] archival records clerk software. Every effort was made to ensure accuracy of archival records clerk. Any obvious errors or omissions should be clarified with the author of the document. Attestations Medical Necessity Statement*: Continue admission for assessment of management of complicated urinary tract infection. Coding Level of Care Code Acute Soil Fertility Extension Specialist for [facility] Fwd Diagnoses Acute pyelonephritis N10 Generalized weakness R53.1 Dehydration E86.0 Acute kidney injury N17.9 Hyponatremia E87.1 Chronic indwelling Guy catheter Z97.8 Primary malignant neoplasm of overlapping sites of bladder C67.8 Leukocytosis D72.829 Transaminitis R74.01 Acute prostatitis N41.0 Acute urinary retention R33.8
--- NOTE | 2022-02-23 11:05 | PC.SOCIAL ---
IMM update IMM updated with patient and at bedside. Verbalized an understanding. Copy Pg 2 provided. Initialled, dated, timed, and placed in chart.
[2022-02-24] VITALS (7 sets, daily range): BP systolic 119–143; BP diastolic 69–72; PULSE 50–77; RESP 16–24; TEMP 36.4–36.9; O2SAT 94–98
[2022-02-24 05:15] LABS: Basophils % 0.1 %; Eosinophils % 0.2 %; Hematocrit 34.1 % (42.0-52.0); Hemoglobin 11.4 g/dL (11.7-16.6); Lymphocytes % 11.7 %; Mean Corpuscular HGB Conc 33.4 g/dL (30.0-36.0); Mean Corpuscular Hemoglobin 30.9 pg (28.0-34.0); Mean Corpuscular Volume 92.4 fl (80-94); Mean Platelet Volume 10.1 fL (7.4-10.4); Monocytes # 0.9 10^3/uL (0.2-0.9); Monocytes % 10.6 %; Neutrophils # 6.49 10^3/uL (1.8-7.7); Neutrophils % 76.8 %; Nucleated Red Blood Cells % 0 %; Platelet Count 198 10^3/cmm (130-400); Red Blood Count 3.69 10^6/uL (4.1-5.3); Red Cell Distribution Width 12.5 % (12.1-15.1); White Blood Count 8.5 10^3/uL (4.0-10.0)
[2022-02-24] MEDS: levothyroxine 75 mcg Tablet PO (05:42)
[2022-02-24] MEDS: famotidine 20 mg/2 mL INJ IVP (05:42)
[2022-02-24] MEDS: heparin 5,000 unit/mL INJ 1 mL 5000 UNIT SUBCUT (05:42)
[2022-02-24 05:45] LABS: Alanine Aminotransferase 96 U/L (0-41); Albumin Level 2.3 g/dL (3.5-5.2); Alkaline Phosphatase 199 U/L (40-130); Anion Gap 12.4 (5-19); Aspartate Amino Transferase 65 U/L (0-40); Blood Urea Nitrogen 15 mg/dL (8-23); Calcium 8.3 mg/dL (8.5-10.5); Carbon Dioxide 25 mmol/L (22-29); Chloride 97 mmol/L (98-107); Glucose 99 mg/dL (65-115); Osmolality Calculated 273 mOsm/kg (285-295); Potassium 3.4 mmol/L (3.5-5.1); Sodium 131 mmol/L (136-145); Total Bilirubin 0.3 mg/dL (0.15-1.2); Total Protein 5.3 g/dL (6.6-8.7)
[2022-02-24] MEDS: ipratropium-albuterol 3 mL Neb INHALATION (08:22)
[2022-02-24] MEDS: budesonide 0.5 mg/2 mL Neb INHALATION (08:22)
[2022-02-24] MEDS: amlodipine 10 mg Tablet PO (09:36)
[2022-02-24] MEDS: ferrous gluconate 324 mg Tablet PO (09:36)
[2022-02-24] MEDS: ciprofloxacin 400 MG/200 ML PREMIX 200 MG IV (09:36)
--- NOTE | 2022-02-24 11:20 | PM.DCS ---
Discharge Providers Date of Admission: 02/20/22 17:51 Date of Discharge: February 24, 2022 Attending Provider at Admission: Naveed De Los Santos MD Attending Provider at Discharge: Tim Garza Primary Care Provider: Negar Sylvester DO Diagnoses at Discharge Discharge Diagnosis (1) Acute pyelonephritis: Status: Acute (2) Generalized weakness: Status: Acute (3) Dehydration: Status: Acute (4) Acute kidney injury: Status: Acute (5) Hyponatremia: Status: Acute (6) Chronic indwelling Guy catheter: Status: Acute (7) Primary malignant neoplasm of overlapping sites of bladder: Status: Acute (8) Leukocytosis: Status: Acute (9) Transaminitis: Status: Acute (10) Acute prostatitis: Status: Acute (11) Acute urinary retention: Status: Acute Reason for Visit Reason for Visit: WEAKNESS/ FALL/ BLOOD IN URINE Hospital Course Hospital Course Pleasant 76-year-old gentleman, hard of hearing, with urinary bladder cancer, urinary retention with chronic Guy catheter, last changed 3 days prior to admission, presents to the hospital with fever, abdominal pain, CT scan concerning for possible prostatic abscess on admission, imaging findings of left pyelonephritis and cystitis, prior urinary bladder mass not clearly identified, short segment of small bowel inflammation adjacent to left kidney, possibly secondary inflammatory process in the kidney or representing enteritis. Urine and blood cultures were collected, he was treated with antibiotic initially Zosyn, but with recurrent high fevers, broadened to Primaxin. Unlikely prostatic abscess on assessment by urology, continued treatment for complicated UTI with nonobstructive pyelonephritis and prostatitis. Fevers so far have subsided and over 24 hours. Leukocytosis on presentation as high as 25,000 has resolved. Urine culture eventually grew Enterobacter aerogenes with resistance to multiple antibiotics including imipenem. He is transition to ciprofloxacin, and due to prostatitis is given additional prescription for further 20 days of treatment currently, however, he is asked to follow-up for reassessment with urology for consideration of follow-up cultures during and after treatment, consideration of adjustment to duration of antibiotic course. He is continue with chronic Guy for now. Resume follow-up with [facility] when able for completion of evaluation for surgical options. Blood cultures so far remain negative. During hospitalization incidentally noted also to have transaminitis thought to be secondary to acute infection, has been showing improvement, T bili remains normal, alk phos with apparent chronic elevation although higher acutely than usual. Gallbladder on CT appeared normal without ductal dilation. No right upper quadrant pain. Please follow-up liver parameters. Physical Exam Narrative: Accompanied by his Const: COMMON NORMALS: alert GENERAL APPEARANCE: cooperative and frail appearing ORIENTATION/CONSCIOUSNESS: Yes awake OTHER: [place] HENMT: COMMON NORMALS: oropharynx normal Neck/C-Spine: COMMON NORMALS: no JVD Resp: COMMON NORMALS: normal respiratory effort and clear to auscultation bilaterally AUSCULTATION: clear to auscultation bilaterally Cardio: COMMON NORMALS: no JVD, regular rhythm, S1 normal heart sound present, S2 normal heart sound present and No murmurs present (Cardio) RHYTHM: regular rhythm HEART SOUNDS: S1 normal heart sound present and S2 normal heart sound present GI: COMMON NORMALS: Normal to inspection, nondistended, normoactive bowel sounds present, Soft to palpation and non-tender PALPATION: Yes Soft to palpation Extremity: COMMON NORMALS: no joint enlargement and no pedal edema Neuro: COMMON NORMALS: moves all extremities SENSORIUM/ORIENTATION: Yes alert Skin: COMMON NORMALS: no rashes or lesions noted GENERAL SKIN EXAM: no rashes or lesions noted Discharge Data Studies Completed and Pending Completed Studies During Hospitalization Category Date Time Status CT abdomen pelvis w con* [id number] Stat Cat Scan 02/20/22 14:[address] head wo con* [id number] Stat Cat Scan 02/20/22 12:46 Completed XR chest 1V portable [id number] Stat Exams 02/20/22 12:46 Completed Pending at discharge Category Date Time Status Blood Culture AM LABS Lab 02/22/22 05:00 Results Blood Culture Stat Lab 02/20/22 16:59 Results Complete Blood Count w/Auto AM LABS Lab 02/25/22 04:00 Ordered Complete Blood Count w/Auto AM LABS Lab 02/26/22 04:00 Ordered Comprehensive Metabolic Panel AM LABS Lab 02/25/22 04:00 Ordered Comprehensive Metabolic Panel AM LABS Lab 02/26/22 04:00 Ordered Radiology Impressions Chest X-Ray 02/20/22 12:46 IMPRESSION: Imaging findings of mild pulmonary congestion. COPD changes. Head CT 02/20/22 12:46 IMPRESSION: 1. No evidence of intracranial hemorrhage or mass effect. 2. No acute intracranial findings. Abdomen/Pelvis CT 02/20/22 14:43 IMPRESSION: 1. Enlarged heterogeneous prostate with irregular rim enhancing fluid collection surrounding the Guy catheter, concerning for abscess/infectious process superimposed in prostatomegaly. 2. Imaging findings of left pyelonephritis and cystitis. Previously seen urinary bladder mass is not clearly identified. 3. Short segment of small bowel inflammation adjacent to the left kidney, which may be secondary to inflammatory process in the kidney or represent enteritis. Laboratory Results WBC 8.5 10^3/uL (4.0-10.0) 02/24/22 04:38 RBC 3.69 10^6/uL (4.1-5.3) L 02/24/22 04:38 Hgb 11.4 g/dL (11.7-16.6) L 02/24/22 04:38 Hct 34.1 % (42.0-52.0) L 02/24/22 04:38 MCV 92.4 fl (80-94) D 02/24/22 04:38 MCH 30.9 pg (28.0-34.0) 02/24/22 04:38 MCHC 33.4 g/dL (30.0-36.0) D 02/24/22 04:38 RDW 12.5 % (12.1-15.1) 02/24/22 04:38 Plt Count 198 10^3/cmm (130-400) 02/24/22 04:38 MPV 10.1 fL (7.4-10.4) 02/24/22 04:38 Neut % (Auto) 76.8 % 02/24/22 04:38 Lymph % (Auto) 11.7 % 02/24/22 04:38 [place] % (Auto) 10.6 % 02/24/22 04:38 Eos % (Auto) 0.2 % 02/24/22 04:38 Baso % (Auto) 0.1 % 02/24/22 04:38 Neut # (Auto) 6.49 10^3/uL (1.8-7.7) 02/24/22 04:38 Lymph # (Auto) 1.0 10^3/uL (0.8-4.8) 02/24/22 04:38 [place] # (Auto) 0.9 10^3/uL (0.2-0.9) 02/24/22 04:38 Eos # (Auto) 0.0 10^3/uL (0.0-0.8) 02/24/22 04:38 Baso # (Auto) 0.0 10^3/uL (0.0-0.1) 02/24/22 04:38 Nucleated RBC % (auto) 0 % 02/24/22 04:38 Nucleated RBCs # 0.0 /100WBC 02/24/22 04:38 Sodium 131 mmol/L (136-145) L 02/24/22 04:38 Potassium 3.4 mmol/L (3.5-5.1) L 02/24/22 04:38 Chloride 97 mmol/L (98-107) L 02/24/22 04:38 Carbon Dioxide 25 mmol/L (22-29) 02/24/22 04:38 Anion Gap 12.4 (5-19) 02/24/22 04:38 BUN 15 mg/dL (8-23) 02/24/22 04:38 Creatinine 1.1 mg/dL (0.7-1.2) 02/24/22 04:38 GFR Calculation Not Reportable 02/24/22 04:38 Glucose 99 mg/dL (65-115) 02/24/22 04:38 Estimat Average Glucose 123 02/21/22 04:51 Hemoglobin A1c 5.9 % (4.0-6.0) 02/21/22 04:51 Calculated Osmolality 273 mOsm/kg (285-295) L 02/24/22 04:38 Calcium 8.3 mg/dL (8.5-10.5) L 02/24/22 04:38 Phosphorus 2.5 mg/dL (2.5-4.5) 02/21/22 04:51 Magnesium 1.9 mg/dL (1.7-2.3) 02/21/22 04:51 Iron 16 ug/dL (59-158) L 02/20/22 12:40 TIBC 218 mcg/dl 02/20/22 12:40 % Saturation 7.3 % (20-50) L 02/20/22 12:40 Unsat Iron Binding 202 ug/dL (112-347) 02/20/22 12:40 Total Bilirubin 0.3 mg/dL (0.15-1.2) 02/24/22 04:38 AST 65 U/L (0-40) H 02/24/22 04:38 ALT 96 U/L (0-41) H 02/24/22 04:38 Alkaline Phosphatase 199 U/L (40-130) H 02/24/22 04:38 Total Protein 5.3 g/dL (6.6-8.7) L 02/24/22 04:38 Albumin 2.3 g/dL (3.5-5.2) L 02/24/22 04:38 Globulin 3.0 g/dL (1.3-4.6) 02/24/22 04:38 Triglycerides 70 mg/dL (0-150) 02/21/22 04:51 Cholesterol 116 mg/dL (0-200) 02/21/22 04:51 LDL Cholesterol, Calc 52 mg/dL (50-129) 02/21/22 04:51 Total VLDL Cholesterol 14 mg/dL (0-30) 02/21/22 04:51 HDL Cholesterol 50 mg/dL (60-100) L 02/21/22 04:51 Cholesterol/HDL Ratio 2.32 mg/dL (1.0-5.00) 02/21/22 04:51 Vitamin B12 > 2000 pg/mL (232-1245) H 02/20/22 12:40 Folate 12.6 ng/mL (4.5-32.2) 02/20/22 19:50 Procalcitonin 8.78 ng/mL (0-0.5) H 02/22/22 04:55 TSH 2.96 uIU/mL (0.27-4.20) 02/20/22 12:40 Urine Color Lachelle (Yellow) 02/20/22 14:15 Urine Appearance Cloudy (CLEAR) A 02/20/22 14:15 Urine pH 6 (5-7) 02/20/22 14:15 Ur Specific [place] 1.015 (1.005-1.030) 02/20/22 14:15 Urine Protein 3+ (Negative) H 02/20/22 14:15 Urine Glucose (UA) Norm (Normal) 02/20/22 14:15 Urine Ketones Negative (Negative) 02/20/22 14:15 Urine Blood 3+ (Negative) H 02/20/22 14:15 Urine Nitrate Positive (Negative) H 02/20/22 14:15 Urine Bilirubin Neg (Negative) 02/20/22 14:15 Urine Urobilinogen Norm mg/dL (Negative) 02/20/22 14:15 Ur Leukocyte Esterase 2+ (Negative) H 02/20/22 14:15 Urine RBC 15-25 /hpf (0-2) H 02/20/22 14:15 Urine WBC 15-25 /hpf (0-5) H 02/20/22 14:15 Ur Squamous Epith Cells None /hpf (0-5) 02/20/22 14:15 Amorphous Sediment Not Reportable 02/20/22 14:15 Urine Bacteria 2+ /hpf (NONE) H 02/20/22 14:15 Ur Random Sodium 98 mmol/L 02/23/22 00:40 Ur Random Potassium 29 mmol/L 02/23/22 00:40 Ur Random Chloride 106 mmol/L 02/23/22 00:40 Urine Creatinine 64 mg/dL (39-259) 02/23/22 00:40 Vitals Last Vital Signs Temp 97.5 F L 02/24/22 08:00 Pulse 66 02/24/22 08:23 Resp 24 H 02/24/22 08:23 BP 119/69 02/24/22 08:00 Pulse Ox 95 02/24/22 08:23 O2 Del Method 02/24/22 08:23 O2 Flow Rate 2 02/24/22 08:23 Discharge Plan Discharge Patient Disposition: Home Health Service Condition: Stable Prescriptions: New ciprofloxacin HCl 500 mg tablet 500 mg PO BID Qty: 40 0RF Continued lisinopril 20 mg tablet 20 mg PO QAM budesonide 0.5 mg/2 mL suspension for nebulization 0.5 mg inhalation QAM PRN (Reason: Shortness Of Breath Or Wheezing) hydrocodone-acetaminophen 5-325 mg tablet 1 tab PO Q6H PRN (Reason: pain) 30 Days Qty: 120 0RF levothyroxine [Euthyrox] 75 mcg tablet 75 mcg PO QAM albuterol sulfate 90 mcg/actuation HFA aerosol inhaler 2 puff INHALATION Q6H PRN (Reason: Shortness Of Breath) PreserVision AREDS-2 250-90-40-1 mg Tablet,Chewable 1 tab PO BEDTIME Discharge Orders: Discharge Order (Routine); Ordered 02/24/22 Ordered By: Tim Garza Referrals: [facility] Home Care ([facility]) [Outside] Cleveland Sanabria MD [Physician] - 7-10 days (prostatitis, follow up culture) Negar Sylvester DO [Primary Care Provider] - 4-7 days Discharge Diet: Soft Mechanical Discharge Activity: As per PT/OT instructions Patient Instructions: Ciprofloxacin (By mouth), Prostatitis (GEN), Kidney Infection (GEN), Fall Prevention (GEN), Opioid Safety Activity Restrictions/Additional Instructions: Follow-up with your urologist for reassessment with treatment of prostatitis, consideration of urine culture during and following treatment. Discussed with urologist whether treatment needs to be extended beyond 20 days. Follow-up also with your primary doctor. Discussed with your primary doctor small segment of small bowel inflamed which is adjacent to the kidney and may be inflamed due to the kidney infection. Please have your primary doctor reassess your liver numbers which have been elevated, although with improvement while in the hospital. Guy catheter as previously until follow-up with urology. Discharge Attestations Time Spent in Discharge Care*: greater than 30 min Quality Metrics Clinical Quality Measures [ No reported AMI, CVA or VTE this stay] Coding Level of Care Code Acute Chg FW DC note Diagnoses Acute pyelonephritis N10 Generalized weakness R53.1 Dehydration E86.0 Acute kidney injury N17.9 Hyponatremia E87.1 Chronic indwelling Guy catheter Z97.8 Primary malignant neoplasm of overlapping sites of bladder C67.8 Leukocytosis D72.829 Transaminitis R74.01 Acute prostatitis N41.0 Acute urinary retention R33.8
[2022-02-24] MEDS: potassium chloride ER 20 mEq Tablet PO (12:00)
--- NOTE | 2022-02-24 12:17 | PC.NURSE ---
Patient and verbalized understanding of discharge instructions home medications, and follow up appointments. Pt also verbalized understanding that home health has accepted the patient and that they would be in touch to set up a time to come out. patient wheeled out to private vehicle.
== END 2022-02-24 12:20 | disposition home health service (06) | DRG 690 ==
LOC: ER 17:17 → MEDSURG 21:57
PROVIDERS: Admitting Provider Student in an Organized Health Care Education/Training Program; Emergency Provider Emergency Medicine; PCP Family Medicine; Visit Provider Internal Medicine
DX: N10 Acute pyelonephritis (principal); E87.1 Hypo-osmolality and hyponatremia; N41.0 Acute prostatitis; Z16.24 Resistance to multiple antibiotics; N17.9 Acute kidney failure, unspecified; B96.89 Other specified bacterial agents as the cause of diseases classified elsewhere; E86.0 Dehydration; R53.1 Weakness; C67.8 Malignant neoplasm of overlapping sites of bladder; D50.9 Iron deficiency anemia, unspecified; J44.9 Chronic obstructive pulmonary disease, unspecified; I10 Essential (primary) hypertension; E03.9 Hypothyroidism, unspecified; G25.0 Essential tremor; R74.01 Elevation of levels of liver transaminase levels; R33.9 Retention of urine, unspecified; F17.210 Nicotine dependence, cigarettes, uncomplicated; Z96.0 Presence of urogenital implants; Z79.891 Long term (current) use of opiate analgesic
CPT/HCPCS: 36415; 70450; 71045; 74177; 80048; 80053; 80061; 81001; 82436; 82570; 82607; 82746; 83036; 83540; 83550; 83735; 84100; 84133; 84145; 84300; 84443; 85025; 87040; 87077; 87086; 87186; 87641; 94640; 94664; 96365; 96367; 96372; 97110; 97116; 97161; 99285; J0696; J0743; J0744; J1644; J2543; J3370; J3490; J7030; J7050; J7626; Q9967

== ENCOUNTER 2022-04-22 01:00 | Outpatient (CLI) | payer MEDICARE, OTHER, SELFPAY ==
[2022-04-22 13:08] LABS: Add Urine Microscopic? YES; Bilirubin Urine Neg (Negative); Blood Urine 3+ (Negative); Glucose Urine UA Norm (Normal); Ketones Urine Negative (Negative); Leukocyte Esterase Urine 2+ (Negative); Nitrate Urine Negative (Negative); Protein Urine 3+ (Negative); Urine Appearance Cloudy (CLEAR); Urine Color Light Yellow (Yellow); Urobilinogen Urine Norm (Negative); pH Urine 5 (5-7)
[2022-04-22 13:09] LABS: Add Urine Culture? Yes; Bacteria Urine 2+ /hpf; RBC Urine TOO NUMEROUS TO CNT /hpf (0-2); WBC Urine TOO NUMEROUS TO CNT /hpf (0-5)
== END 2022-04-22 23:00 | disposition home or self-care (01) ==
LOC: LAB 05-30 13:20
PROVIDERS: PCP Family Medicine; Visit Provider Family Medicine
DX: N10 Acute pyelonephritis (principal)
CPT/HCPCS: 81001; 87086

== ENCOUNTER 2022-07-20 13:06 | Outpatient (CLI) | payer OTHER, SELFPAY ==
[2022-07-20 13:47] LABS: Add Urine Microscopic? YES; Bilirubin Urine Neg (Negative); Blood Urine 3+ (Negative); Glucose Urine UA Norm (Normal); Ketones Urine Negative (Negative); Leukocyte Esterase Urine 2+ (Negative); Nitrate Urine Negative (Negative); Protein Urine 1+ (Negative); Urine Appearance Cloudy (CLEAR); Urine Color Yellow (Yellow); Urobilinogen Urine Neg (Negative); pH Urine 5 (5-7)
[2022-07-20 13:48] LABS: Bacteria Urine 1+ /hpf; WBC Urine 25-40 /hpf (0-5)
[2022-07-20 13:56] LABS: Add Urine Culture? No
== END 2022-07-20 13:07 | disposition home or self-care (01) ==
LOC: LAB 13:12
PROVIDERS: PCP Family Medicine; Visit Provider Internal Medicine
DX: N10 Acute pyelonephritis (principal)
CPT/HCPCS: 81001

== ENCOUNTER 2022-07-24 12:24 | Outpatient (CLI) | payer OTHER, SELFPAY ==
[2022-07-24 13:04] LABS: Add Urine Microscopic? YES; Bilirubin Urine Neg (Negative); Blood Urine 2+ (Negative); Glucose Urine UA Norm (Normal); Ketones Urine 1+ (Negative); Leukocyte Esterase Urine Trace (Negative); Nitrate Urine Negative (Negative); Protein Urine 3+ (Negative); Urine Appearance Cloudy (CLEAR); Urine Color Yellow (Yellow); Urobilinogen Urine Neg (Negative); pH Urine 5 (5-7)
[2022-07-24 13:05] LABS: Add Urine Culture? Yes; Bacteria Urine TRACE /hpf; Mucus Urine 3+ /hpf
== END 2022-07-24 12:25 | disposition home or self-care (01) ==
LOC: LAB 12:29
PROVIDERS: PCP Family Medicine; Visit Provider Internal Medicine
DX: N10 Acute pyelonephritis (principal)
CPT/HCPCS: 81001; 87086